=== PATIENT | female | born 1940 | race African-American/Black ===

== ENCOUNTER 2017-12-10 16:58 | Inpatient (IN) | payer MEDICARE ==
[~2017-12-10] VITALS: Ht 162.6 cm; Wt 120.2 kg
[2017-12-10] MEDS ORDERED: ACETAMINOPHEN 325 MG TABLET PO PRN (18:15)
[2017-12-10 19:22] VITALS: BP 162/79
--- NOTE | 2017-12-10 19:37 | RAD ---
CT HEAD AND MAXILLOFACIAL WO dated 12/10/2017 6:21 PM Indication: Sinus congestion, dental painHX brain tumore, sinus congestion, dental pain. Comparison: No comparison is available. Technique: Contiguous axial imaging the head was performed from skull base to vertex. No contrast administered. In addition, axial imaging of the maxillofacial bones obtained with thin cut coronal and sagittal reconstruction. One or more of the following individualized dose reduction techniques were utilized for this examination: 1. Automated exposure control 2. Adjustment of the mA and/or kV according to patient size 3. Use of iterative reconstruction technique Findings: Ventricles and sulci are within normal limits for age. No midline shift or mass effect. Brain parenchyma is of normal attenuation. No hemorrhage or extra axial collection. There is minimal patchy low density in the deep/subcortical periventricular white matter. Posterior fossa and brainstem unremarkable. No acute calvarial abnormality. There is a small calcified nodule along the right frontal convexity that measures 7 mm, likely calcified meningioma. Images of the maxillary facial bones show mild mucosal thickening of the bilateral maxillary, ethmoid and right sphenoid sinuses. Ostiomeatal units and infundibula are patent. No air-fluid level. There is mild hypertrophy of the bilateral nasal turbinates. Nasal septum is midline. There is mild radiolucency surrounding a premolar tooth at the right mandible no significant inflammatory changes in the overlying subcutaneous fat. No fluid collection is identified. Visualized soft tissue structures are unremarkable. Mastoid air cells are clear. IMPRESSION HEAD: 1. No evidence of acute intracranial abnormality. 2. Calcified nodule along the right frontal convexity, likely a small meningioma. No significant mass effect or edema. 3. Mild chronic small vessel ischemic changes in the deep/subcortical periventricular white matter. Impression maxillofacial: 1. Mild pansinus mucosal thickening. The ostiomeatal units and infundibula are patent. 2. Mild radiolucency along a premolar tooth at the right mandible, possibly representing a dental caries. No definite adjacent abscess. Electronically signed by: Theodore Schulz MD (12/10/2017 7:34 PM) [facility]
[2017-12-10 19:40] LABS: BASO % 1 % (0-3); EOS # 0.2 x10^3/uL (0.0-0.7); EOS % 3 % (0-3); HEMATOCRIT 31.6 % (36.0-47.0); HEMOGLOBIN 10.5 g/dL (12.0-15.5); LYMPH # 1.6 x10^3/uL (1.0-4.8); LYMPH % 28 % (24-48); MEAN CORPUSCULAR HEMOGLOBIN 31 pg (25-35); MEAN CORPUSCULAR HGB CONC 33 g/dL (31-37); MEAN CORPUSCULAR VOLUME 92 fL (79-100); MONO # 0.6 x10^3/uL (0.0-1.1); MONO % 11 % (0-9); NEUT # 3.3 x10^3uL (1.8-7.7); NEUT % 58 % (31-73); PLATELET COUNT 235 x10^3/uL (140-400); RED BLOOD COUNT 3.43 x10^6/uL (3.50-5.40); RED CELL DISTRIBUTION WIDTH 14.9 % (11.5-14.5); WHITE BLOOD COUNT 5.7 x10^3/uL (4.0-11.0)
[2017-12-10 19:52] LABS: ALBUMIN 3.6 g/dL (3.4-5.0); ALBUMIN/GLOBULIN RATIO 0.8 (1.0-1.7); ALK PHOS 101 U/L (46-116); ALT (SGPT) 21 U/L (14-59); ANION GAP 8 (6-14); AST (SGOT) 21 U/L (15-37); BLOOD UREA NITROGEN 24 mg/dL (7-20); BUN/CREATININE RATIO 17 (6-20); CALCIUM 9.4 mg/dL (8.5-10.1); CARBON DIOXIDE 32 mmol/L (21-32); CHLORIDE 104 mmol/L (98-107); CREATININE 1.4 mg/dL (0.6-1.0); GLUCOSE 86 mg/dL (70-99); POTASSIUM 3.9 mmol/L (3.5-5.1); SODIUM 144 mmol/L (136-145); TOTAL BILIRUBIN 0.4 mg/dL (0.2-1.0)
[2017-12-10] MEDS: CLINDAMYCIN HCL 150 MG CAPSULE PO SCH (21:34)
[2017-12-10] MEDS: LACTOBACILLUS RHAMNOSUS GG 1 CAPSULE. PO SCH (21:34)
[2017-12-10 21:35] LABS: BILIRUBIN,URINE NEG (NEG); CLARITY,URINE CLEAR; COLOR,URINE YELLOW; GLUCOSE,URINE NEG (NEG); NITRITE,URINE NEG (NEG); UROBILINOGEN,URINE 0.2 mg/dL (0.2 mg/dL)
[2017-12-10 21:36] LABS: BACTERIA,URINE FEW /HPF (0-FEW); HYALINE CASTS, URINE FEW /HPF; SQUAMOUS EPITHELIAL CELL,UR MANY /LPF
[2017-12-10] MEDS ORDERED: VALS160T3 PO (21:45)
[2017-12-10] MEDS ORDERED: DEXL60CA2 PO (21:46)
--- NOTE | 2017-12-10 21:52 | EKG ---
[address] [address] Test Date: 2017-12-10 Test Time: 20:46:29 Pat Name: VALDO BENÍTEZ Department: Room: [place] [address] Gender: F Set Off Press Operator: : 1940 Requested By: DARLYN BAINS Order Number: [id number] Reading MD: Measurements Intervals [place] Rate: 72 P: 24 OR: 200 QRS: -6 QRSD: 84 T: 59 QT: 410 QTc: 456 Interpretive Statements SINUS RHYTHM LEFTWARD AXIS NO SPECIFIC ECG ABNORMALITIES RI6.01 No previous ECG available for comparison
[2017-12-10] MEDS ORDERED: CLINDAMYCIN 75 MG/5 ML ORAL SOLUTION. PO SCH (22:00)
[2017-12-10] MEDS ORDERED: SENN-87 PO (22:12)
[2017-12-10] MEDS ORDERED: POTA10TA10 PO (22:12)
[2017-12-10] MEDS ORDERED: OMEP40CA5 PO (22:12)
[2017-12-10] MEDS ORDERED: LUBI24CA7 PO (22:12)
[2017-12-10] MEDS ORDERED: FURO80TA3 PO (22:12)
[2017-12-10] MEDS ORDERED: LEVO200T5 PO (22:12)
[2017-12-10] MEDS ORDERED: HYDR-2867 PO (22:12)
[2017-12-10] MEDS ORDERED: LEVE500T11 PO (22:12)
[2017-12-10 23:35] VITALS: BP 177/82
--- NOTE | 2017-12-10 23:39 | RAD ---
CHEST PA LATERAL History: Chest pain and discomfort Comparison: None. Findings: There is left chest dual-chamber pacer. Tortuous thoracic aorta. Mild cardiomegaly. Pulmonary vasculature is normal. The lungs are clear. No pleural effusion or pneumothorax is seen. There is no acute bone abnormality. IMPRESSION: No acute cardiopulmonary process. Electronically signed by: Piter Flores MD (12/10/2017 11:35 PM) [facility]
[2017-12-11] MEDS: CLINDAMYCIN HCL 150 MG CAPSULE PO SCH ×5 (05:38→23:37)
[2017-12-11 06:06] VITALS: BP 163/80
[2017-12-11 06:33] LABS: CALCIUM 9.2 mg/dL (8.5-10.1); CREATININE 1.2 mg/dL (0.6-1.0); GFR 52.6; POTASSIUM 3.4 mmol/L (3.5-5.1)
[2017-12-11 06:43] LABS: BASO % 0 % (0-3); EOS # 0.1 x10^3/uL (0.0-0.7); EOS % 3 % (0-3); HEMOGLOBIN 10.1 g/dL (12.0-15.5); LYMPH # 1.6 x10^3/uL (1.0-4.8); LYMPH % 31 % (24-48); MEAN CORPUSCULAR HEMOGLOBIN 31 pg (25-35); MEAN CORPUSCULAR HGB CONC 34 g/dL (31-37); MEAN CORPUSCULAR VOLUME 93 fL (79-100); MONO # 0.5 x10^3/uL (0.0-1.1); MONO % 10 % (0-9); NEUT % 57 % (31-73); PLATELET COUNT 220 x10^3/uL (140-400); RED BLOOD COUNT 3.24 x10^6/uL (3.50-5.40); RED CELL DISTRIBUTION WIDTH 14.7 % (11.5-14.5); WHITE BLOOD COUNT 5.4 x10^3/uL (4.0-11.0)
[2017-12-11] MEDS: LACTOBACILLUS RHAMNOSUS GG 1 CAPSULE. PO SCH ×2 (08:16→20:49)
[2017-12-11 10:34] VITALS: BP 184/95
[2017-12-11] MEDS ORDERED: ELECTROLYTE (NON-ICU) PROTOCOL MC PRN (10:45)
[2017-12-11] MEDS: levETIRAcetam 500 MG TABLET PO SCH ×2 (10:59→20:50)
[2017-12-11] MEDS: PANTOPRAZOLE 40 MG TABLET. PO SCH (10:59)
[2017-12-11] MEDS: LEVOTHYROXINE 100 MCG TABLET PO SCH (10:59)
[2017-12-11] MEDS: LOSARTAN 50 MG TABLET. PO SCH (11:00)
[2017-12-11] MEDS: FUROSEMIDE 80 MG TABLET PO SCH (11:00)
[2017-12-11] MEDS: POTASSIUM CHLORIDE 20 MEQ TABLET.ER. PO SCH (11:00)
--- NOTE | 2017-12-11 11:15 | PDOC2 ---
UNIQUEDAILY Carol DAILY 12/11/17 1115: CONSULT Date of Admission DATE: 12/11/17 TIME: 11:00 Reason for Consult: chest pain History of Present Illness Ms Cote is a 77 year old female who recently traveled from [place] to visit her daughter. She presented to her PCP with complaints of chest pain. She reports right sided chest pain, radiating to her right arm, which is increased with deep inspiration and movement of her right upper extremity. She reports shortness of breath for some time. She is very vague about her symptoms but sounds like she has been more short of breath with exertion over the last month or so. She denies orthopnea or PND and sleeps on 2 pillows for comfort. Her daughter reports that she has more swelling in her legs than normal. She denies palpitations or lightheadedness. She does mention that she saw the neurologist because she passed out but is unable to give details. She is a poor historian but her daughter assists with her medical history. Past Medical History brain tumor, prior history of DVT/PE Cardiovascular: CAD, CHF, HTN, IA, syncope, hyperipidemia, Other ( cardiomyopathy with systolic dysfunction, SSS s/p PM) Pulmonary: Asthma, Other (SOPHY) CENTRAL NERVOUS SYSTEM: CVA, Seizure GI: Constipation, GERD Heme/Onc: Anemia NOS Musculoskeletal: Osteoarthritis Renal/: Chronic renal insuff Endocrine: Diabetes, Hypothyroidism Past Surgical History bowel resection with mesh hernia repair, cholecystectomy Family History non contributory Social History non smoker, no significant ETOH, no illicit drugs Current Medications Current Medications Acetaminophen (Tylenol) 650 mg PRN Q6HRS PRN PO Headaches, Temp > 101.5F; Start 12/10/17 at 18:15 Clindamycin Palmitate HCl (Cleocin Pediatric) 300 mg Q6H PO ; Start 12/10/17 at 22:00; Stop 12/10/17 at 22:00; Status DC Clindamycin HCl (Cleocin) 300 mg Q6HRS PO Last administered on 12/11/17at 05:38 ; Start 12/10/17 at 19:00 Lactobacillus Rhamnosus (Culturelle) 1 cap BID PO Last administered on at 08:16; Start 12/10/17 at 21:00 Non-Formulary Medication (Dexlansoprazole (Dexilant)) 1 cap DAILY PO ; Start at 09:00; Stop 12/12/17 at 09:00; Status DC Furosemide (Lasix) 80 mg DAILY PO ; Start 12/11/17 at 11:00 Hydralazine HCl (Apresoline) 10 mg QID PO ; Start 12/11/17 at 13:00 Levetiracetam (Keppra) 500 mg BID PO ; Start 12/11/17 at 11:00 Levothyroxine Sodium (Synthroid) 200 mcg DAILY07 PO ; Start 12/11/17 at 11:00 Pantoprazole Sodium (Protonix) 40 mg DAILYAC PO ; Start 12/11/17 at 11:00 Potassium Chloride (Klor-Con) 20 meq DAILYWBKFT PO ; Start 12/11/17 at 11:00 Sennosides (Senna) 8.6 mg QHS PO ; Start 12/11/17 at 21:00 Losartan Potassium (Cozaar) 100 mg DAILY PO ; Start 12/11/17 at 11:00 Info (Non-Icu Electrolyte Protocol) 1 ea CONT PRN PRN MC PER PROTOCOL; Start at 10:45 Heparin Sodium (Porcine) (Heparin Sq) 5,000 unit Q8HRS SQ ; Start 12/11/17 at 14 :00 Active Scripts Active Reported Amitiza (Lubiprostone) 24 Mcg Capsule 1 Cap PO BID Potassium Chloride 10 Meq Tablet.er 20 Meq PO DAILY Furosemide 80 Mg Tablet 1 Tab PO DAILY Senna Lax (Sennosides) 8.6 Mg Tablet 8.6 Mg PO HS Levetiracetam 500 Mg Tab.er.24h 500 Mg PO BID Hydralazine Hcl 10 Mg Tablet 10 Mg PO QID Omeprazole 40 Mg Capsule.dr 1 Cap PO DAILY Levothyroxine Sodium 200 Mcg Tablet 1 Tab PO DAILY Dexilant (Dexlansoprazole) 60 Mg Cap.mp 1 Cap PO DAILY Diovan (Valsartan) 160 Mg Tablet 1 Tab PO DAILY Allergies: Coded Allergies: Penicillins (Verified Allergy, Intermediate, Anaphylaxis, 12/10/17) soy (Verified Allergy, Mild, Unknown, 12/10/17) Review of System as per HPI General: Alert, Oriented X3, Cooperative, No acute distress HEENT: Atraumatic, EOMI Lungs: Clear to auscultation Heart: Regular rate, Normal S1, Normal S2 Abdomen: Normal bowel sounds, Soft Extremities: No cyanosis, Other (+chronic edema) Neuro: Normal speech, Strength at 5/5 X4 ext Psych/Mental Status: Mental status NL, Mood NL VITALS Vital Signs Date Time Temp Pulse Resp B/P (MAP) Pulse Ox O2 Delivery O2 Flow Rate FiO2 12/11/17 10:34 66 184/95 (124) 12/11/17 07:45 Room Air 12/11/17 06:06 98.2 12 96 Labs Laboratory Tests Test 12/10/17 19:05 12/10/17 19:57 12/10/17 22:35 12/11/17 05:58 White Blood Count 5.7 x10^3/uL (4.0-11.0) 5.4 x10^3/uL (4.0-11.0) Red Blood Count 3.43 x10^6/uL (3.50-5.40) 3.24 x10^6/uL (3.50-5.40) Hemoglobin 10.5 g/dL (12.0-15.5) 10.1 g/dL (12.0-15.5) Hematocrit 31.6 % (36.0-47.0) 30.0 % (36.0-47.0) Mean Corpuscular Volume 92 fL (79-100) 93 fL (79-100) Mean Corpuscular Hemoglobin 31 pg (25-35) 31 pg (25-35) Mean Corpuscular Hemoglobin Concent 33 g/dL (31-37) 34 g/dL (31-37) Red Cell Distribution Width 14.9 % (11.5-14.5) 14.7 % (11.5-14.5) Platelet Count 235 x10^3/uL (140-400) 220 x10^3/uL (140-400) Neutrophils (%) (Auto) 58 % (31-73) 57 % (31-73) Lymphocytes (%) (Auto) 28 % (24-48) 31 % (24-48) Monocytes (%) (Auto) 11 % (0-9) 10 % (0-9) Eosinophils (%) (Auto) 3 % (0-3) 3 % (0-3) Basophils (%) (Auto) 1 % (0-3) 0 % (0-3) Neutrophils # (Auto) 3.3 x10^3uL (1.8-7.7) 3.0 x10^3uL (1.8-7.7) Lymphocytes # (Auto) 1.6 x10^3/uL (1.0-4.8) 1.6 x10^3/uL (1.0-4.8) Monocytes # (Auto) 0.6 x10^3/uL (0.0-1.1) 0.5 x10^3/uL (0.0-1.1) Eosinophils # (Auto) 0.2 x10^3/uL (0.0-0.7) 0.1 x10^3/uL (0.0-0.7) Basophils # (Auto) 0.0 x10^3/uL (0.0-0.2) 0.0 x10^3/uL (0.0-0.2) D-Dimer (Emperatriz) 2.72 mg/L (0.00-0.50) Sodium Level 144 mmol/L (136-145) 143 mmol/L (136-145) Potassium Level 3.9 mmol/L (3.5-5.1) 3.4 mmol/L (3.5-5.1) Chloride Level 104 mmol/L (98-107) 105 mmol/L (98-107) Carbon Dioxide Level 32 mmol/L (21-32) 31 mmol/L (21-32) Anion Gap 8 (6-14) 7 (6-14) Blood Urea Nitrogen 24 mg/dL (7-20) 20 mg/dL (7-20) Creatinine 1.4 mg/dL (0.6-1.0) 1.2 mg/dL (0.6-1.0) Estimated GFR (Cockcroft-Gault) 44.0 52.6 BUN/Creatinine Ratio 17 (6-20) Glucose Level 86 mg/dL (70-99) 93 mg/dL (70-99) Calcium Level 9.4 mg/dL (8.5-10.1) 9.2 mg/dL (8.5-10.1) Magnesium Level 2.0 mg/dL (1.8-2.4) Total Bilirubin 0.4 mg/dL (0.2-1.0) Aspartate Amino Transf (AST/SGOT) 21 U/L (15-37) Alanine Aminotransferase (ALT/SGPT) 21 U/L (14-59) Alkaline Phosphatase 101 U/L (46-116) Creatine Kinase 73 U/L (26-192) 70 U/L (26-192) 62 U/L (26-192) Creatine Kinase MB (Mass) < 0.5 ng/mL (0.0-3.6) < 0.5 ng/mL (0.0-3.6) Creatine Kinase MB Relative Index 0.7 % (0-4) 0.7 % (0-4) Troponin I Quantitative < 0.017 ng/mL (0-0.055) < 0.017 ng/mL (0-0.055) < 0.017 ng/mL (0-0.055) BY-Jrs-T-Type Natriuretic Peptide 321 pg/mL (0-449) Total Protein 8.0 g/dL (6.4-8.2) Albumin 3.6 g/dL (3.4-5.0) Albumin/Globulin Ratio 0.8 (1.0-1.7) Urine Collection Type Unknown Urine Color Yellow Urine Clarity Clear Urine pH 5.0 Urine Specific [place] 1.010 Urine Protein Neg (NEG-TRACE) Urine Glucose (UA) Neg mg/dL (NEG) Urine Ketones (Stick) Neg mg/dL (NEG) Urine Blood Trace (NEG) Urine Nitrite Neg (NEG) Urine Bilirubin Neg (NEG) Urine Urobilinogen Dipstick 0.2 mg/dL (0.2 mg/dL) Urine Leukocyte Esterase Small (NEG) Urine RBC 3-5 /HPF (0-2) Urine WBC 11-20 /HPF (0-4) Urine Squamous Epithelial Cells Many /LPF Urine Bacteria Few /HPF (0-FEW) Urine Hyaline Casts Few /HPF Urine Mucus Slight /LPF Images EKG - a paced, V sensed, no acute abn CXR - IMPRESSION: No acute cardiopulmonary process. Assessment/Plan 1. Chest pain, atypical - CE negative. D Dimer elevated. 2. CAD - CE negative 3. chronic systolic heart failure - check echo, no HF by CXR. monitor I/Os and daily weights. 4. syncope vs seizure - check orthostatics, check PM for arrhythmias. Neuro consulted 5. SSS s/p PPM - obtain records and check device 6. hypertension 7. hyperlipidemia 8. diabetes Check echo, request records and interrogate PM, CT for PE and venous duplex sonos. FAVIO HATFIELD MD 12/12/17 0729: CONSULT Assessment/Plan Late entry for 12/11/2017. Pt. seen and examined. Agree with above DRAFTER APPRENTICE note. 77 y.o with significant uncontrolled HTN Suspect this is diastolic HF. Will await OSH records and device interrogation. Supportive care. Thanks. DAILY CALHOUN APRN December 11, 2017 11:15 FAVIO HATFIELD MD December 12, 2017 07:29
[2017-12-11] MEDS: hydrALAZINE 10 MG TABLET PO SCH ×3 (13:04→20:50)
[2017-12-11] MEDS: HEPARIN PF for SUB-Q USE 5,000 UNIT/0.5 ML VIAL. SQ SCH ×2 (14:15→22:12)
--- NOTE | 2017-12-11 15:41 | RAD ---
VQ Scan: Clinical History: Elevated d-dimer, dyspnea. Comparison: None available Technique: 10.4 mCi of xenon-133 was administered as an aerosol and spot views were obtained on a gamma camera for a Nuclear Medicine ventilation examination. 5.5 mCi of Tc 99m MAA was administered intravenously and spot views were obtained on the gamma camera for a Nuclear Medicine perfusion examination. Static images were reviewed as a V/Q scan in order to exclude pulmonary embolism. Findings: There is mild retention of the radiotracer on the ventilation images on the washout phase probably airway disease. No evidence of segmental mismatch defects identified in the bilateral lungs. Impression: Low probability for pulmonary embolism. Electronically signed by: Sloan Esposito MD (12/11/2017 3:38 PM) [id number]
[2017-12-11 15:48] VITALS: BP 176/81
--- NOTE | 2017-12-11 15:54 | CARD ---
MR#: [id number] Date of Study: 12/11/2017 Ordering Physician: DARLYN BAINS, Referring Physician: DARLYN BAINS, Tech: NICOLE Brown APPROVED REPORT EXAM: Two-dimensional and M-mode echocardiogram with Doppler and color Doppler. Other Information Quality : AverageHR: 65bpm INDICATION Chest Pain 2D DIMENSIONS RVDd3.2 (2.9-3.5cm)Left Atrium(2D)3.0 (1.6-4.0cm) IVSd1.5 (0.7-1.1cm)Aortic Root(2D)2.8 (2.0-3.7cm) LVDd5.4 (3.9-5.9cm)LVOT Diameter2.2 (1.8-2.4cm) PWd1.5 (0.7-1.1cm)LVDs4.0 (2.5-4.0cm) FS (%) 25.6 %SV69.6 ml Aortic Valve AoV Peak Sherman.206.7cm/sAoV VTI48.8cm AO Peak GR.17.1mmHgLVOT Peak Sherman.100.6cm/s LVOT VTI 24.47cmAO Mean GR.9mmHg ROSANA (VMAX)1.11of6VKP (VTI)1.87cm2 Mitral Valve MV E Tlwzsaay640.8cm/sMV DECEL EJYW298yz MV A Vuqvvfgn676.6cm/sE/A Ratio0.9 Pulmonary Valve PV Peak Uidlvnue846.4cm/sPV Peak Grad.6mmHg Tricuspid Valve TR P. Yqctymsy119sd/sRAP CGQSXKRK6pjAv TR Peak Gr.23ulKhUUVY47xiWd Pulmonary Vein S1 Luazcrtx40.4cm/sD2 Yvxahqns76.6cm/s LEFT VENTRICLE The left ventricle is normal size. There is moderate concentric left ventricular hypertrophy. Left ve ntricle systolic function is normal. The Ejection Fraction is 55%. There is normal LV segmental wall motion. Transmitral Doppler flow pattern is Grade I-abnormal relaxation pattern. RIGHT VENTRICLE The right ventricle is normal size. There is normal right ventricular wall thickness. The right ventr icular systolic function is normal. ATRIA The left atrium size is normal. The right atrium size is normal. The interatrial septum is intact wit h no evidence for an atrial septal defect or patent foramen ovale as noted on 2-D or Doppler imaging. AORTIC VALVE The aortic valve is mildly sclerotic. Doppler and Color Flow revealed no significant aortic regurgita tion. There is no significant aortic valvular stenosis. There is no aortic valvular vegetation. MITRAL VALVE The mitral valve is mildly thickened but opens well. There is no evidence of mitral valve prolapse. T here is no mitral valve stenosis. Doppler and Color-flow revealed trace mitral regurgitation. TRICUSPID VALVE The tricuspid valve is normal in structure. Doppler and Color Flow revealed mild tricuspid regurgitat ion. There is moderate pulmonary hypertension. The PA pressure was estimated at 48 mmHg. There is no tricuspid valve prolapse or vegetation. There is no tricuspid valve stenosis. PULMONIC VALVE The pulmonic valve is not well visualized. Doppler and Color Flow revealed mild pulmonic valvular reg urgitation. There is no pulmonic valvular stenosis. GREAT VESSELS The aortic root is normal in size. The IVC is dilated and collapses >50% with inspiration. PERICARDIAL EFFUSION There is no evidence of significant pericardial effusion. Critical Notification Critical Value: No <Conclusion> Left ventricle systolic function is normal. The Ejection Fraction is 55%. There is normal LV segmental wall motion. Trace mitral regurgitation. Mild tricuspid regurgitation. The PA pressure was estimated at 48 mmHg. There is no evidence of significant pericardial effusion. Signed by : Kit Piedra, Electronically Approved : 12/11/2017 15:53:20
[2017-12-11 19:52] VITALS: BP 147/67
[2017-12-11] MEDS ORDERED: SENNOSIDES 8.6 MG TABLET PO SCH (21:00)
--- NOTE | 2017-12-11 22:38 | PN ---
DATE: 12/11/2017 SUBJECTIVE: The patient continues to have mild right-sided chest pain radiating to the right shoulder. She denies any new medical or neurological complaints. OBJECTIVE: GENERAL: Obese -[place] female, not in acute distress. VITAL SIGNS: Blood pressure 163/80, respiratory rate 12, pulse is 66 and regular, temperature is 98.2, oxygen saturation 96% on room air. HEENT: Normocephalic, atraumatic, otherwise unremarkable. NECK: Supple. Negative for carotid bruit, lymphadenopathy, or thyromegaly. LUNGS: Clear to A and P. CARDIOVASCULAR: Regular rate and rhythm, normal S1, S2. There is no S3, S4, or murmur. ABDOMEN: Soft. Bowel sounds positive. EXTREMITIES: With diffuse trace edema. NEUROLOGIC: Normal mental status and intact cranial nerves. There is no focal motor deficit. The strength was 4/5 throughout. Sensory examination revealed normal pinprick, light touch, vibratory and position senses. Deep tendon reflexes were symmetric and hypoactive with absent Achilles responses. Gait: The patient uses a walker without difficulties. LABORATORY DATA: CBC revealed white blood cells of 5400, hemoglobin 10.1, hematocrit 30, platelet count 220,000. Chemistry revealed sodium of 143, potassium 3.4, chloride 105, CO2 31, BUN 20, creatinine 1.2, glucose 93, and calcium 9.2. Normal troponin level and cardiac enzymes. IMPRESSION: 1. Right-sided chest pain with history of gastroesophageal reflux disease, probably not cardiac, chest pain with normal cardiac enzymes. 2. History of seizure disorder, the last seizure was a year ago. 3. Multiple medical problems include hypothyroidism, hypertension, hyperlipidemia, status post permanent pacemaker placement, generalized arthritis, and obesity. RECOMMENDATIONS: Continue with current management with potassium supplements. We will arrange for EEG to be done next Saturday on an outpatient basis. M Debbie DAVEY MD DR: YOLANDA/hermelindo JOB#: [id number] / [id number]
--- NOTE | 2017-12-11 22:53 | CONS ---
DATE OF CONSULTATION: 12/10/2017 REFERRING PHYSICIAN: Dr. Marin. REASON FOR CONSULTATION: Syncope versus seizure. HISTORY OF PRESENT ILLNESS: This is a 77-year-old right-handed -Spanish female who was admitted because of developing chest pain and possibly has a syncope versus seizure. According to the patient, she started having right-sided chest pain radiating to the shoulder approximately 4 days ago. The pain has been intermittent, but she does not have any diaphoresis, shortness of breath or palpitations. She also complains of moderate lower abdominal pain and she stated she will have this pain when she had urinary tract infections; however, she denies any urinary problems. The patient stated after she had chest pain, she went to bathroom, but when she came back she was tired, she laid down on the couch for approximately 4 hours. When she woke up, she was confused, incoherent, she did not know where she was. Today, her chest pain is mild. She denies headaches, visual disturbances, nausea, vomiting, numbness, paresthesia or weakness. She also complains of generalized arthritic pain and she related that to arthritis. PAST MEDICAL HISTORY: Significant for morbid obesity, seizure disorders, brain tumor, which is benign appearing tremor -- possible meningioma, bradycardia required permanent pacemaker placement, hyperlipidemia, asthma, sleep apnea, GERD, arthritis, diabetes mellitus, anxiety. PAST SURGICAL HISTORY: Significant for pacemaker placement, abdominal surgery required mesh placement. SOCIAL HISTORY: The patient is a resident of [facility]. She is a visitor. She denies smoking, alcohol drinking, or illicit drug use. FAMILY HISTORY: Noncontributory. CURRENT HOME MEDICATIONS: Dexilant 60 mg daily, Lasix 80 mg daily, hydralazine 10 mg tablets q.i.d., levetiracetam (Keppra) 500 mg twice daily, levothyroxine 200 mcg daily, omeprazole 40 mg daily, potassium 20 mEq daily, Senna-Lax p.r.n. and Diovan 160 mg daily. ALLERGIES: PENICILLIN AND SOY. REVIEW OF SYSTEMS: A 10-point review of system was performed and consistent with morbid obesity. Otherwise, as mentioned above in history of present illness. PHYSICAL EXAMINATION: GENERAL: Obese white female, not in acute distress. She weighs 265 pounds. VITAL SIGNS: Blood pressure 162/79, respiratory rate 18, pulse is 76 and regular, temperature 97.9, oxygen saturation is 93% on room air. HEENT: Normocephalic, atraumatic, otherwise unremarkable. NECK: Supple. Negative for carotid bruit, lymphadenopathy or thyromegaly. LUNGS: Clear to A and P. CARDIOVASCULAR: Regular rate and rhythm. Normal S1, S2. ABDOMEN: Soft. Bowel sounds positive. EXTREMITIES: Positive for generalized trace edema. NEUROLOGICAL: 1. Mental status: The patient is alert and oriented x 3. The speech is fluent. There is no language dysfunction. Memory, judgment, abstract and thinking are normal. The patient denies hallucination or delusion. 2. Cranial nerves: Visual hodge are full. The pupils are reactive to light and accommodation. The extraocular movements are intact. There is no nystagmus. There is no facial motor or sensory deficit. Hearing is intact bilaterally. The palate is elevated symmetrically. Sternocleidomastoid muscles are powerful bilaterally. The patient shrugs her shoulders symmetrically, protrudes her tongue in the midline without fasciculation or atrophy. 3. Motor examination: No focal muscle bulk was seen. The tone is normal. The strength is 4/5 throughout. 4. Sensory examination: Revealed normal pinprick, light touch, vibratory and position senses. 5. Deep tendon reflexes were symmetric and hypoactive with absent Achilles responses. 6. Gait: The patient uses a walker for ambulation. DIAGNOSTIC DATA: Initial nonenhanced head CT scan revealed no evidence of acute intracranial process, but showed a calcified small nodule along the right frontal convexity probably consistent with a small meningioma, otherwise mild chronic small vessel ischemic changes were also noted. Brenner sinus mucosal thickening were also noted. Chest x-ray: No evidence of acute cardiopulmonary process. LABORATORY DATA: CBC revealed white blood cells of 5.7 thousand, hemoglobin 10.5, hematocrit 31.6, platelet count 235,000. Chemistry revealed sodium of 143, potassium 3.4, chloride 105, CO2 of 31, BUN 20, creatinine 1.2, glucose is 93, calcium 9.2. Liver enzymes are normal. Cardiac enzymes are normal with normal troponin level. Urinalysis, white blood cells of 11-20 with small leukocyte esterase and few bacteria. IMPRESSION: 1. Right-sided chest pain with normal cardiac enzymes, status post pacemaker placement. EKG is not available at this time, but shows a normal sinus rhythm without acute ST changes. The chest pain probably is not cardiac. 2. History of seizure disorder with abnormal head CT scan consistent with small meningioma. The patient stated her last seizure was a year ago. 3. Possible urinary tract infections. 4. Obesity and a history of obstructive sleep apnea. 5. Gastroesophageal reflux disease, generalized arthritis, mild hypokalemia, anemia probably of chronic type, hypothyroidism, history of anxiety and depression. RECOMMENDATIONS: 1. The patient will be scheduled to have an EEG on an outpatient basis. 2. Potassium supplements. 3. PT evaluation. 4. Continue with current care initiated by Dr. Marin. M Debbie DAVEY MD DR: YOLANDA/hermelindo JOB#: [id number] / [id number]
[2017-12-11 23:49] VITALS: BP 146/74
--- NOTE | 2017-12-11 23:57 | PN ---
DATE: 12/11/2017 SUBJECTIVE: A 77-year-old female in with multiple medical issues. The patient otherwise is resting fairly comfortably, making fairly good progress, being seen by Neurology as well as Cardiology. OBJECTIVE: GENERAL: The patient this morning says she is feeling better. The patient is alert and oriented. VITAL SIGNS: Blood pressure is up to 180/90, respiratory rate 12, pulse 66, afebrile. HEENT: Otherwise, eyes PERRLA, EOMI. Mouth and throat are negative. NECK: Supple. LUNGS: Clear to auscultation. CARDIOVASCULAR: Regular sinus rhythm, S1, S2, without murmur, thrill, or extra heart sound. The patient was complaining a little bit of chest pain. Cardiology is on top of that. We will get echo and further evaluation on her as indicated. Otherwise impression chest pain, syncope, possible seizure activity ____ hypokalemia, elevated D-dimer, anemia of chronic disease. DARLYN BAINS MD DR: ALISTAIR/hermelindo JOB#: [id number] / [id number]
[2017-12-12 06:15] VITALS: BP 160/80
[2017-12-12] MEDS: CLINDAMYCIN HCL 150 MG CAPSULE PO SCH ×2 (06:17→11:53)
[2017-12-12] MEDS: HEPARIN PF for SUB-Q USE 5,000 UNIT/0.5 ML VIAL. SQ SCH (06:22)
[2017-12-12] MEDS: FUROSEMIDE 80 MG TABLET PO SCH (08:28)
[2017-12-12] MEDS: LACTOBACILLUS RHAMNOSUS GG 1 CAPSULE. PO SCH (08:28)
[2017-12-12] MEDS: LEVOTHYROXINE 100 MCG TABLET PO SCH (08:28)
[2017-12-12] MEDS: PANTOPRAZOLE 40 MG TABLET. PO SCH (08:29)
[2017-12-12] MEDS: POTASSIUM CHLORIDE 20 MEQ TABLET.ER. PO SCH (08:29)
[2017-12-12] MEDS: LOSARTAN 50 MG TABLET. PO SCH (08:29)
[2017-12-12] MEDS: hydrALAZINE 10 MG TABLET PO SCH (08:30)
[2017-12-12] MEDS: levETIRAcetam 500 MG TABLET PO SCH (08:30)
[2017-12-12] MEDS ORDERED: NON FORMULARY ITEM (Dexlansoprazole (Dexilant) 1 CAP) PO SCH (09:00)
--- NOTE | 2017-12-12 09:11 | PDOC ---
PROGRESS NOTES Assessment 1. Chest pain, atypical - CE negative. D Dimer elevated. VQ negative. 2. CAD - CE negative. No angina 3. chronic diastolic heart failure - normal LVEF by echo. 1x IV lasix today. replace potassium. 4. syncope vs seizure - neg orthostatics, awaiting records for pacemaker staff readiness officer. Scheduled for check in office on if unable to obtain records. Neuro following. EEG outpatient on Sat. 5. SSS s/p PPM 6. hypertension - increase hydralazine. 7. hyperlipidemia 8. diabetes - per PCP IV lasix, replace potassium, increase hydralazine and repeat labs this am. re- evaluate and possible discharge this afternoon. Subjective no new complaints. no significant change in edema. Objective Vital Signs Date Time Temp Pulse Resp B/P (MAP) Pulse Ox O2 Delivery O2 Flow Rate FiO2 12/12/17 08:30 71 160/80 12/12/17 08:00 Room Air 12/12/17 06:15 98.3 16 93 Intake and Output 12/12/17 07:00 Intake Total 280 ml Balance 280 ml Intake Oral 280 ml # Voids 4 Abdomen: Normal bowel sounds, Soft, No tenderness Heart: Regular rate, Normal S1, Normal S2 Extremities: No cyanosis, Other (+edema) General: Alert, Oriented X3, Cooperative, No acute distress Lungs: Other (decreased bases) Neuro: Normal speech, Strength at 5/5 X4 ext Psych/Mental Status: Mental status NL, Mood NL Review of Relevant I have reviewed the following items rudy (where applicable) has been applied. Labs Laboratory Tests Test 12/10/17 19:05 12/10/17 19:10 12/10/17 19:57 12/10/17 22:35 White Blood Count 5.7 x10^3/uL (4.0-11.0) Red Blood Count 3.43 x10^6/uL (3.50-5.40) Hemoglobin 10.5 g/dL (12.0-15.5) Hematocrit 31.6 % (36.0-47.0) Mean Corpuscular Volume 92 fL (79-100) Mean Corpuscular Hemoglobin 31 pg (25-35) Mean Corpuscular Hemoglobin Concent 33 g/dL (31-37) Red Cell Distribution Width 14.9 % (11.5-14.5) Platelet Count 235 x10^3/uL (140-400) Neutrophils (%) (Auto) 58 % (31-73) Lymphocytes (%) (Auto) 28 % (24-48) Monocytes (%) (Auto) 11 % (0-9) Eosinophils (%) (Auto) 3 % (0-3) Basophils (%) (Auto) 1 % (0-3) Neutrophils # (Auto) 3.3 x10^3uL (1.8-7.7) Lymphocytes # (Auto) 1.6 x10^3/uL (1.0-4.8) Monocytes # (Auto) 0.6 x10^3/uL (0.0-1.1) Eosinophils # (Auto) 0.2 x10^3/uL (0.0-0.7) Basophils # (Auto) 0.0 x10^3/uL (0.0-0.2) D-Dimer (Emperatriz) 2.72 mg/L (0.00-0.50) Sodium Level 144 mmol/L (136-145) Potassium Level 3.9 mmol/L (3.5-5.1) Chloride Level 104 mmol/L (98-107) Carbon Dioxide Level 32 mmol/L (21-32) Anion Gap 8 (6-14) Blood Urea Nitrogen 24 mg/dL (7-20) Creatinine 1.4 mg/dL (0.6-1.0) Estimated GFR (Cockcroft-Gault) 44.0 BUN/Creatinine Ratio 17 (6-20) Glucose Level 86 mg/dL (70-99) Calcium Level 9.4 mg/dL (8.5-10.1) Magnesium Level 2.0 mg/dL (1.8-2.4) Total Bilirubin 0.4 mg/dL (0.2-1.0) Aspartate Amino Transf (AST/SGOT) 21 U/L (15-37) Alanine Aminotransferase (ALT/SGPT) 21 U/L (14-59) Alkaline Phosphatase 101 U/L (46-116) Creatine Kinase 73 U/L (26-192) 70 U/L (26-192) Creatine Kinase MB (Mass) < 0.5 ng/mL (0.0-3.6) < 0.5 ng/mL (0.0-3.6) Creatine Kinase MB Relative Index 0.7 % (0-4) 0.7 % (0-4) Troponin I Quantitative < 0.017 ng/mL (0-0.055) < 0.017 ng/mL (0-0.055) RR-Pxn-T-Type Natriuretic Peptide 321 pg/mL (0-449) Total Protein 8.0 g/dL (6.4-8.2) Albumin 3.6 g/dL (3.4-5.0) Albumin/Globulin Ratio 0.8 (1.0-1.7) Nasal Screen MRSA (PCR) Negative (Negative) Urine Collection Type Unknown Urine Color Yellow Urine Clarity Clear Urine pH 5.0 Urine Specific [place] 1.010 Urine Protein Neg (NEG-TRACE) Urine Glucose (UA) Neg mg/dL (NEG) Urine Ketones (Stick) Neg mg/dL (NEG) Urine Blood Trace (NEG) Urine Nitrite Neg (NEG) Urine Bilirubin Neg (NEG) Urine Urobilinogen Dipstick 0.2 mg/dL (0.2 mg/dL) Urine Leukocyte Esterase Small (NEG) Urine RBC 3-5 /HPF (0-2) Urine WBC 11-20 /HPF (0-4) Urine Squamous Epithelial Cells Many /LPF Urine Bacteria Few /HPF (0-FEW) Urine Hyaline Casts Few /HPF Urine Mucus Slight /LPF Test 12/11/17 05:58 White Blood Count 5.4 x10^3/uL (4.0-11.0) Red Blood Count 3.24 x10^6/uL (3.50-5.40) Hemoglobin 10.1 g/dL (12.0-15.5) Hematocrit 30.0 % (36.0-47.0) Mean Corpuscular Volume 93 fL (79-100) Mean Corpuscular Hemoglobin 31 pg (25-35) Mean Corpuscular Hemoglobin Concent 34 g/dL (31-37) Red Cell Distribution Width 14.7 % (11.5-14.5) Platelet Count 220 x10^3/uL (140-400) Neutrophils (%) (Auto) 57 % (31-73) Lymphocytes (%) (Auto) 31 % (24-48) Monocytes (%) (Auto) 10 % (0-9) Eosinophils (%) (Auto) 3 % (0-3) Basophils (%) (Auto) 0 % (0-3) Neutrophils # (Auto) 3.0 x10^3uL (1.8-7.7) Lymphocytes # (Auto) 1.6 x10^3/uL (1.0-4.8) Monocytes # (Auto) 0.5 x10^3/uL (0.0-1.1) Eosinophils # (Auto) 0.1 x10^3/uL (0.0-0.7) Basophils # (Auto) 0.0 x10^3/uL (0.0-0.2) Sodium Level 143 mmol/L (136-145) Potassium Level 3.4 mmol/L (3.5-5.1) Chloride Level 105 mmol/L (98-107) Carbon Dioxide Level 31 mmol/L (21-32) Anion Gap 7 (6-14) Blood Urea Nitrogen 20 mg/dL (7-20) Creatinine 1.2 mg/dL (0.6-1.0) Estimated GFR (Cockcroft-Gault) 52.6 Glucose Level 93 mg/dL (70-99) Calcium Level 9.2 mg/dL (8.5-10.1) Creatine Kinase 62 U/L (26-192) Troponin I Quantitative < 0.017 ng/mL (0-0.055) Triglycerides Level 89 mg/dL (0-150) Cholesterol Level 182 mg/dL (0-200) LDL Cholesterol, Calculated 111 mg/dL (0-100) VLDL Cholesterol, Calculated 17 mg/dL (0-40) Non-HDL Cholesterol Calculated 128 mg/dL (0-129) HDL Cholesterol 54 mg/dL (40-60) Cholesterol/HDL Ratio 3.0 Microbiology 12/10/17 Blood Culture - Preliminary, Resulted NO GROWTH AFTER 1 DAY... Medications Current Medications Acetaminophen (Tylenol) 650 mg PRN Q6HRS PRN PO Headaches, Temp > 101.5F Last administered on 12/11/17at 23:41; Start 12/10/17 at 18:15 Clindamycin Palmitate HCl (Cleocin Pediatric) 300 mg Q6H PO ; Start 12/10/17 at 22:00; Stop 12/10/17 at 22:00; Status DC Clindamycin HCl (Cleocin) 300 mg Q6HRS PO Last administered on 12/12/17at 06:17 ; Start 12/10/17 at 19:00 Lactobacillus Rhamnosus (Culturelle) 1 cap BID PO Last administered on 08:28; Start 12/10/17 at 21:00 Non-Formulary Medication (Dexlansoprazole (Dexilant)) 1 cap DAILY PO ; Start at 09:00; Stop 12/12/17 at 09:00; Status DC Furosemide (Lasix) 80 mg DAILY PO Last administered on 12/12/17 08:28; Start 12/11/17 at 11:00 Hydralazine HCl (Apresoline) 10 mg QID PO Last administered on 12/12/17 08:30 ; Start 12/11/17 at 13:00 Levetiracetam (Keppra) 500 mg BID PO Last administered on 12/12/17 08:30; Start 12/11/17 at 11:00 Levothyroxine Sodium (Synthroid) 200 mcg DAILY07 PO Last administered on 08:28; Start 12/11/17 at 11:00 Pantoprazole Sodium (Protonix) 40 mg DAILYAC PO Last administered on 12/12/17 08:29; Start 12/11/17 at 11:00 Potassium Chloride (Klor-Con) 20 meq DAILYWBKFT PO Last administered on 08:29; Start 12/11/17 at 11:00 Sennosides (Senna) 8.6 mg QHS PO Last administered on 12/11/17at 20:49; Start at 21:00 Losartan Potassium (Cozaar) 100 mg DAILY PO Last administered on 12/12/17at 08: 29; Start 12/11/17 at 11:00 Info (Non-Icu Electrolyte Protocol) 1 ea CONT PRN PRN MC PER PROTOCOL; Start at 10:45 Heparin Sodium (Porcine) (Heparin Sq) 5,000 unit Q8HRS SQ Last administered on 12/12/17at 06:22; Start 12/11/17 at 14:00 Active Scripts Active Reported Amitiza (Lubiprostone) 24 Mcg Capsule 1 Cap PO BID Potassium Chloride 10 Meq Tablet.er 20 Meq PO DAILY Furosemide 80 Mg Tablet 1 Tab PO DAILY Senna Lax (Sennosides) 8.6 Mg Tablet 8.6 Mg PO HS Levetiracetam 500 Mg Tab.er.24h 500 Mg PO BID Hydralazine Hcl 10 Mg Tablet 10 Mg PO QID Omeprazole 40 Mg Capsule. 1 Cap PO DAILY Levothyroxine Sodium 200 Mcg Tablet 1 Tab PO DAILY Dexilant (Dexlansoprazole) 60 Mg Cap. 1 Cap PO DAILY Diovan (Valsartan) 160 Mg Tablet 1 Tab PO DAILY Vitals/I & O Vital Sign - Last 24 Hours 12/11/17 12/11/17 12/11/17 12/11/17 10:34 11:00 13:04 15:48 Temp 97.6 Pulse 66 66 66 71 Resp 20 B/P (MAP) 184/95 (124) 184/95 184/95 176/81 (112) Pulse Ox 98 12/11/17 12/11/17 12/11/17 12/11/17 17:11 19:45 19:52 20:50 Temp 97.9 Pulse 71 70 70 Resp 14 B/P (MAP) 176/81 147/67 (93) 147/67 Pulse Ox 94 O2 Delivery Room Air Room Air 12/11/17 12/12/17 12/12/17 12/12/17 23:49 06:15 08:00 08:29 Temp 98.3 98.3 Pulse 68 71 71 Resp 14 16 B/P (MAP) 146/74 (98) 160/80 (106) 160/80 Pulse Ox 93 93 O2 Delivery Room Air Room Air Room Air 12/12/17 08:30 Pulse 71 B/P (MAP) 160/80 Intake and Output 12/11/17 12/11/17 12/12/17 15:00 23:00 07:00 Intake Total 280 ml Balance 280 ml DAILY CALHOUN APRN December 12, 2017 09:11
[2017-12-12] MEDS ORDERED: CLIN300C8 PO (10:02)
[2017-12-12] MEDS ORDERED: FUROSEMIDE 40 MG/4 ML VIAL IVP ONE (10:15)
--- NOTE | 2017-12-12 10:35 | RAD ---
MR#: [id number] Date of Study: 12/11/2017 Ordering Physician: DAILY CALHOUN, Referring Physician: DARLYN BAINS, Tech: Julieta Hull RDMS, RVT, RTR APPROVED REPORT Lower Extremity Venous Study for DVT Patient Location: IN-PATIENT Indications Shortness of breath This is a technically difficult study due to the patient's body habitus. Grossly at the bilateral common femoral veins and saphenofemoral junctions there is no evidence of th rombus. The deep veins appear to be compressible with normal spectral imaging and color Doppler. The mid to distal superficial femoral vein is not well visualized. Bilateral popliteal veins are grossly within normal limits. The below-knee veins again are not well visualized. Critical Notification Critical Value: No <Conclusion> 1. Technically difficult study with grossly no evidence of DVT in the common femoral veins. The leg a nd calf veins were not well visualized due to body habitus but grossly appear to be compressible with out any obvious evidence of thrombus. Signed by : Elier Parker, Electronically Approved : 12/12/2017 10:34:06
[2017-12-12 10:46] LABS: CALCIUM 9.2 mg/dL (8.5-10.1); CREATININE 1.1 mg/dL (0.6-1.0); GFR 58.1; POTASSIUM 3.5 mmol/L (3.5-5.1)
[2017-12-12 10:57] VITALS: BP 135/62
[2017-12-12] MEDS ORDERED: SIMETHICONE 80 MG TAB.CHEW PO PRN (11:30)
[2017-12-12] MEDS ORDERED: CALCIUM CARBONATE 500 MG TAB.CHEW PO PRN (11:30)
[2017-12-12] MEDS ORDERED: hydrALAZINE 25 MG TABLET PO SCH (14:00)
[2017-12-12] MEDS ORDERED: POTASSIUM CHLORIDE 20 MEQ TABLET.ER. PO SCH (14:00)
== END 2017-12-12 13:45 | disposition home or self-care (01) | DRG 101 ==
LOC: ICU 17:56 → 1 SOUTH 20:45
PROVIDERS: ADMIT Family Medicine; ATTEND Family Medicine
DX: G40.509 Epileptic seizures related to external causes, not intractable, without status epilepticus (principal); I13.0 Hypertensive heart and chronic kidney disease with heart failure and stage 1 through stage 4 chronic kidney disease, or unspecified chronic kidney disease; I50.22 Chronic systolic (congestive) heart failure; K12.2 Cellulitis and abscess of mouth; I42.9 Cardiomyopathy, unspecified; E11.22 Type 2 diabetes mellitus with diabetic chronic kidney disease; I49.5 Sick sinus syndrome; E66.01 Morbid (severe) obesity due to excess calories; E03.9 Hypothyroidism, unspecified; R07.89 Other chest pain; N18.9 Chronic kidney disease, unspecified; E78.5 Hyperlipidemia, unspecified; E87.6 Hypokalemia; G47.33 Obstructive sleep apnea (adult) (pediatric); J45.909 Unspecified asthma, uncomplicated; I25.10 Atherosclerotic heart disease of native coronary artery without angina pectoris; M13.0 Polyarthritis, unspecified; K21.9 Gastro-esophageal reflux disease without esophagitis; F32.9 Major depressive disorder, single episode, unspecified; F41.9 Anxiety disorder, unspecified; D63.8 Anemia in other chronic diseases classified elsewhere; Z79.899 Other long term (current) drug therapy; Z88.0 Allergy status to penicillin; Z91.018 Allergy to other foods; Z86.011 Personal history of benign neoplasm of the brain; Z86.711 Personal history of pulmonary embolism; Z86.718 Personal history of other venous thrombosis and embolism; Z86.73 Personal history of transient ischemic attack (TIA), and cerebral infarction without residual deficits; Z95.0 Presence of cardiac pacemaker; I25.2 Old myocardial infarction; Z90.49 Acquired absence of other specified parts of digestive tract
CPT/HCPCS: 36415; 70450; 70486; 71046; 78582; 80048; 80053; 80061; 81001; 82550; 82553; 83735; 83880; 84484; 85025; 85379; 87040; 87086; 87641; 93005; 93306; 93970; 96374; A9540; A9558; J1940

== ENCOUNTER 2018-01-02 23:09 | Observation (INO) | payer MEDICARE ==
[~2018-01-02] VITALS: Ht 162.6 cm; Wt 122.6 kg
[~2018-01-02 23:09] MED LIST: CLIN300C8 PO; DEXL60CA2 PO; FURO80TA3 PO; HYDR-2867 PO; LEVE500T11 PO; LEVO200T5 PO; LUBI24CA7 PO; OMEP40CA5 PO; POTA10TA10 PO; SENN-87 PO; VALS160T3 PO
[2018-01-03 00:21] LABS: BASO % 1 % (0-3); EOS # 0.2 x10^3/uL (0.0-0.7); EOS % 3 % (0-3); HEMATOCRIT 29.1 % (36.0-47.0); HEMOGLOBIN 9.8 g/dL (12.0-15.5); LYMPH # 1.6 x10^3/uL (1.0-4.8); LYMPH % 26 % (24-48); MEAN CORPUSCULAR HEMOGLOBIN 31 pg (25-35); MEAN CORPUSCULAR HGB CONC 34 g/dL (31-37); MEAN CORPUSCULAR VOLUME 93 fL (79-100); MONO # 0.6 x10^3/uL (0.0-1.1); MONO % 10 % (0-9); NEUT # 3.6 x10^3uL (1.8-7.7); NEUT % 60 % (31-73); PLATELET COUNT 222 x10^3/uL (140-400); RED BLOOD COUNT 3.15 x10^6/uL (3.50-5.40); RED CELL DISTRIBUTION WIDTH 14.6 % (11.5-14.5)
[2018-01-03 00:32] LABS: ALBUMIN 3.1 g/dL (3.4-5.0); ALBUMIN/GLOBULIN RATIO 0.7 (1.0-1.7); CREATININE 1.3 mg/dL (0.6-1.0); GFR 47.9; POTASSIUM 3.4 mmol/L (3.5-5.1); TOTAL BILIRUBIN 0.4 mg/dL (0.2-1.0); TOTAL PROTEIN 7.6 g/dL (6.4-8.2)
[2018-01-03] MEDS ORDERED: CONTRAST GIVEN MC PRN (01:30)
[2018-01-03] MEDS ORDERED: IV NORMAL SALINE 1,000ML 1,000 ML IV ONE (02:00)
[2018-01-03] MEDS ORDERED: IOHEXOL 300 MG/ML 75 ML VIAL. IV ONE (02:00)
[2018-01-03] MEDS ORDERED: ONDANSETRON PF 4 MG/2 ML VIAL. IV ONE (02:00)
--- NOTE | 2018-01-03 02:13 | RAD ---
EXAM: CHEST 1 VIEW. HISTORY: Shortness of breath. COMPARISON: December 10, 2017. FINDINGS: A frontal view of the chest is obtained. A left-sided pacemaker has its leads in the right atrium and right ventricle. There are no confluent infiltrates. There is no pneumothorax or pleural effusion. The heart is moderately enlarged. IMPRESSION: 1. Moderate cardiomegaly. Electronically signed by: Jennifer Mckeon MD (01/03/2018 2:09 AM) [facility]
[2018-01-03 02:18] LABS: BACTERIA,URINE 0 /HPF (0-FEW); BILIRUBIN,URINE NEG (NEG); CLARITY,URINE CLEAR; COLOR,URINE YELLOW; GLUCOSE,URINE NEG (NEG); NITRITE,URINE NEG (NEG); RBC,URINE 0 /HPF (0-2); UROBILINOGEN,URINE 0.2 mg/dL (0.2 mg/dL); WBC,URINE OCC /HPF (0-4)
[2018-01-03 02:19] LABS: SQUAMOUS EPITHELIAL CELL,UR FEW /LPF
[2018-01-03] MEDS ORDERED: FUROSEMIDE 40 MG/4 ML VIAL IVP ONE (02:30)
--- NOTE | 2018-01-03 02:41 | ED.ADGEN ---
Past History Past Medical History: Diabetes, High Cholesterol Alcohol Use: None Drug Use: None Adult General Chief Complaint Chief Complaint Shortness of breath, chest pain HPI HPI Patient is a 77-year-old female with history of cardiomyopathy who presents with progressive shortness of breath over the past several hours. Chest shortness breath is associated with substernal chest pain which is nonradiating. It is described as moderate worse with exertion but are present at rest. No nausea vomiting or sweats. No fever chills, nausea vomiting or sweats. Denies history of CAD. No history of DVT or PE. Recent travel from [place] 3 months ago. Patient is currently staying with her daughter. No medications or therapy's prior to ED arrival. Patient is a nonsmoker.[] Review of Systems Review of Systems Review symptoms as per history of present illness.] All other systems were reviewed and found to be within normal limits, except as documented in this note. Current Medications Current Medications Current Medications Medications (Trade) Dose Ordered Sig/Marcos Start Time Stop Time Status Last Admin Dose Admin Fentanyl Citrate (Fentanyl 2ml Vial) 50 mcg 1X ONCE 01/03/18 02:00 01/03/18 02:01 DC 01/03/18 01:37 50 MCG Furosemide (Lasix) 40 mg 1X ONCE 01/03/18 02:30 01/03/18 02:31 DC 01/03/18 02:39 40 MG Info (Do NOT chart on this entry -- for MONITORING) 1 each PRN DAILY PRN 01/03/18 01:30 01/05/18 01:29 Iohexol (Omnipaque 300 Mg/ml) 75 ml 1X ONCE 01/03/18 02:00 01/03/18 02:01 DC 01/03/18 02:03 75 ML Ondansetron HCl (Zofran) 4 mg 1X ONCE 01/03/18 02:00 01/03/18 02:01 DC 01/03/18 01:36 4 MG Sodium Chloride 1,000 ml @ 1,000 mls/hr 1X ONCE 01/03/18 02:00 01/03/18 02:59 DC 01/03/18 01:38 1,000 MLS/HR Allergies Allergies Allergies Coded Allergies Type Severity Reaction Last Updated Verified Penicillins Allergy Intermediate Anaphylaxis 12/10/17 Yes soy Allergy Mild Unknown 12/10/17 Yes Physical Exam Physical Exam Constitutional: Well developed, well nourished, no acute distress, non-toxic appearance. [] HENT: Normocephalic, atraumatic, bilateral external ears normal, oropharynx moist, no oral exudates, nose normal. [] Eyes: PERRLA, EOMI, conjunctiva normal, no discharge. [] Neck: Normal range of motion, no tenderness, supple, no stridor. [] Cardiovascular:Heart rate regular rhythm, no murmur [] Lungs & Thorax: Bilateral breath sounds clear to auscultation [] Abdomen: Bowel sounds normal, soft, no tenderness, no masses, no pulsatile masses. [] Skin: Warm, dry, no erythema, no rash. [] Back: No tenderness, no CVA tenderness. [] Extremities: No tenderness, no cyanosis and kill edema.. [] Neurologic: Alert and oriented X 3, normal motor function, normal sensory function, no focal deficits noted. [] Psychologic: Affect normal, judgement normal, mood normal. [] Current Patient Data Vital Signs Vital Signs Date Time Temp Pulse Resp B/P (MAP) Pulse Ox O2 Delivery O2 Flow Rate FiO2 01/03/18 04:13 64 20 130/70 (90) 97 Room Air 01/02/18 23:27 98.2 Lab Results Laboratory Tests Test 01/03/18 00:02 01/03/18 01:48 White Blood Count 6.0 x10^3/uL (4.0-11.0) Red Blood Count 3.15 x10^6/uL (3.50-5.40) L Hemoglobin 9.8 g/dL (12.0-15.5) L Hematocrit 29.1 % (36.0-47.0) L Mean Corpuscular Volume 93 fL (79-100) Mean Corpuscular Hemoglobin 31 pg (25-35) Mean Corpuscular Hemoglobin Concent 34 g/dL (31-37) Red Cell Distribution Width 14.6 % (11.5-14.5) H Platelet Count 222 x10^3/uL (140-400) Neutrophils (%) (Auto) 60 % (31-73) Lymphocytes (%) (Auto) 26 % (24-48) Monocytes (%) (Auto) 10 % (0-9) H Eosinophils (%) (Auto) 3 % (0-3) Basophils (%) (Auto) 1 % (0-3) Neutrophils # (Auto) 3.6 x10^3uL (1.8-7.7) Lymphocytes # (Auto) 1.6 x10^3/uL (1.0-4.8) Monocytes # (Auto) 0.6 x10^3/uL (0.0-1.1) Eosinophils # (Auto) 0.2 x10^3/uL (0.0-0.7) Basophils # (Auto) 0.0 x10^3/uL (0.0-0.2) D-Dimer (Emperatriz) 2.24 mg/L (0.00-0.50) H Sodium Level 142 mmol/L (136-145) Potassium Level 3.4 mmol/L (3.5-5.1) L Chloride Level 107 mmol/L (98-107) Carbon Dioxide Level 29 mmol/L (21-32) Anion Gap 6 (6-14) Blood Urea Nitrogen 19 mg/dL (7-20) Creatinine 1.3 mg/dL (0.6-1.0) H Estimated GFR (Cockcroft-Gault) 47.9 BUN/Creatinine Ratio 15 (6-20) Glucose Level 108 mg/dL (70-99) H Calcium Level 9.0 mg/dL (8.5-10.1) Total Bilirubin 0.4 mg/dL (0.2-1.0) Aspartate Amino Transferase (AST) 15 U/L (15-37) Alanine Aminotransferase (ALT) 15 U/L (14-59) Alkaline Phosphatase 108 U/L (46-116) Troponin I Quantitative < 0.017 ng/mL (0-0.055) HM-Gcu-Y-Type Natriuretic Peptide 540 pg/mL (0-449) H Total Protein 7.6 g/dL (6.4-8.2) Albumin 3.1 g/dL (3.4-5.0) L Albumin/Globulin Ratio 0.7 (1.0-1.7) L Urine Collection Type Unknown Urine Color Yellow Urine Clarity Clear Urine pH 5.5 Urine Specific [place] 1.015 Urine Protein Neg (NEG-TRACE) Urine Glucose (UA) Neg mg/dL (NEG) Urine Ketones (Stick) Neg mg/dL (NEG) Urine Blood Neg (NEG) Urine Nitrite Neg (NEG) Urine Bilirubin Neg (NEG) Urine Urobilinogen Dipstick 0.2 mg/dL (0.2 mg/dL) Urine Leukocyte Esterase Trace (NEG) Urine RBC 0 /HPF (0-2) Urine WBC Occ /HPF (0-4) Urine Squamous Epithelial Cells Few /LPF Urine Bacteria 0 /HPF (0-FEW) EKG EKG [EKG: Sinus rhythm, rate 70, no acute ST-T wave changes, nonspecific ST-T wave changes. QTC 4:30. Interpreted by this physician.] Radiology/Procedures Radiology/Procedures []CT angios chest: No pulmonary emboli and, pulmonary artery cheek hypertension , moderate cardiomegaly biliary dilatation and pancreatic duct dilatation without obstructing lesion, 3 cm benign adrenal adenoma, moderate hiatal hernia , distal esophageal wall thickening suggest esophagitis per radiology report Course & Med Decision Making Course & Med Decision Making Pertinent Labs and Imaging studies reviewed. (See chart for details) [aTypical chest pain, shortness of breath. No findings of DVT, troponin negative. Mild CHF, Lasix, fentanyl and Zofran given with clinical improvement. Will admit to the hospital service for further evaluation and treatment] Final Impression Final Impression [#1 chest pain #2 CHF exacerbation ] Dragon Disclaimer Dragon Disclaimer This electronic medical record was generated, in whole or in part, using a voice recognition dictation system. AISHWARYA IVORY DO Jan 03, 2018 02:41
--- NOTE | 2018-01-03 03:40 | RAD ---
EXAM: CT ANGIOGRAPHY OF THE CHEST WITH AND WITHOUT INTRAVENOUS CONTRAST. HISTORY: Chest pain, shortness of breath, elevated d-dimer. TECHNIQUE: Computed tomographic angiography of the chest was performed before and after the intravenous administration of 60 mL Omnipaque 300. 3-D maximum intensity projections were also performed. COMPARISON: None. FINDINGS: Images of the upper abdomen reveal changes of cholecystectomy. The common duct measures 9 mm. There is no mild intrahepatic biliary dilatation. The pancreatic duct is also dilated distally at 6 mm. There are no clear pancreatic parenchymal lesions by this technique. A right adrenal nodule measures less than fluid attenuation and 3.1 x 2.1 cm. This is consistent with a benign adenoma or a myelolipoma. There is a moderate hiatal hernia. Wall thickening of the distal esophagus suggests esophagitis. Bone windows reveal no suspicious lesions. No pulmonary emboli are identified. The main pulmonary artery measures 3.3 cm. There is no aortic dissection or aneurysm. There are no pathologically enlarged mediastinal or axillary lymph nodes. There is no pleural or pericardial effusion. The heart is moderately enlarged. A left-sided pacemaker has leads in the right atrium and right ventricle. Coronary atherosclerotic calcifications are noted. Mosaic attenuation in the left upper lobe in both bases is consistent with mild air trapping in the setting of small airways disease. There are no acute infiltrates. IMPRESSION: 1. No pulmonary embolism. 2. Enlargement of the main pulmonary artery suggests pulmonary arterial hypertension. 3. Moderate cardiomegaly. 4. Correlate for small airways disease. 5. Mild extrahepatic biliary dilatation status post cholecystectomy. The pancreatic duct is also dilated without a clear distal obstructing lesion. MRCP could further evaluate if there is persistent concern. 6. Moderate hiatal hernia. Distal esophageal wall thickening suggests esophagitis. 7. 3 cm benign right adrenal adenoma or myelolipoma. *One or more of the following individualized dose reduction techniques were utilized for this examination: 1. Automated exposure control. 2. Adjustment of the mA and/or kV according to patient size. 3. Use of iterative reconstruction technique. Electronically signed by: Jennifer Mckeon MD (01/03/2018 3:36 AM) [facility]
--- NOTE | 2018-01-03 03:41 | EKG ---
[address] [address] Test Date: 2018-01-02 Test Time: 23:10:36 Pat Name: VALDO BENÍTEZ Department: Room: Gender: F Gastroenterology Physician: CARRI : 1940 Requested By: AISHWARYA IVORY Order Number: [id number] Reading MD: Elier Parker MD Measurements Intervals Central Rate: 70 P: 30 [place]: 170 QRS: -15 QRSD: 78 T: 48 QT: 396 QTc: 430 Interpretive Statements PROBABLE PACED RHYTHM VERSUS SR NON-SPECIFIC ST/T CHANGES Electronically Signed On 01-06-2018 10:18:02 CDT by Elier Parker MD
[2018-01-03] MEDS ORDERED: ONDANSETRON PF 4 MG/2 ML VIAL. IV PRN (04:30)
[2018-01-03 05:53] VITALS: BP 151/83
[2018-01-03] MEDS ORDERED: CIPR500T94 PO (06:20)
--- NOTE | 2018-01-03 06:45 | NUR ---
Admission Note: Pt admitted to [facility] through the ER. Pt woke up SOB and having CP and has increased swelling in her BLE's. Pt is alert and oriented, pleasant and cooperative. Denies pain at time of admission. Pt talks in complete sentences with resps even and unlabored at time of admission. LSCTA but diminished throughout. Pt oriented to hospital policy and procedures. Instructed on use of bed and call light. Questions answered for pt and warm blakets provided.
[2018-01-03] MEDS: LACTOBACILLUS RHAMNOSUS GG 1 CAPSULE. PO SCH ×2 (08:07→21:44)
[2018-01-03] MEDS: hydrALAZINE 10 MG TABLET PO SCH ×4 (08:08→21:44)
[2018-01-03] MEDS: LOSARTAN 50 MG TABLET. PO SCH (08:08)
[2018-01-03] MEDS: LEVOTHYROXINE 100 MCG TABLET PO SCH (08:08)
[2018-01-03] MEDS: PANTOPRAZOLE 40 MG TABLET. PO SCH (08:08)
[2018-01-03] MEDS: CIPROFLOXACIN HCL 500 MG TABLET PO SCH ×2 (08:09→21:44)
[2018-01-03] MEDS: levETIRAcetam 500 MG TABLET PO SCH ×2 (08:09→21:44)
[2018-01-03] MEDS: POTASSIUM CHLORIDE 20 MEQ TABLET.ER. PO SCH ×3 (08:09→21:45)
[2018-01-03] MEDS: FUROSEMIDE 40 MG/4 ML VIAL IVP SCH ×2 (08:09→14:53)
[2018-01-03] MEDS: LUBIPROSTONE 24 MCG CAPSULE PO SCH ×2 (08:14→21:45)
[2018-01-03] MEDS ORDERED: FUROSEMIDE PO SCH (09:00)
--- NOTE | 2018-01-03 09:21 | PDOC2 ---
UNIQUEDAILY Medina KILLIAN 01/03/18 0921: CONSULT Date of Admission DATE: 01/03/18 TIME: 09:12 Reason for Consult: cp Problem List Problems Medical Problems: (1) CHF exacerbation Status: Acute History of Present Illness Ms Cote is a 77 year old female who recently traveled from [place] to visit her daughter. She was seen last month in the hospital with atypical chest pain and decompensation of diastolic heart failure. She presented back this time with complaints of recurrent right sided chest pain with radiation to her shoulder and pain in her neck and right cheek. Pain is not exertional and is exacerbated by movement. She reports ongoing swelling in her legs but no increase in dyspnea since her last admission. Echocardiogram last month revealed normal LV function and wall motion and moderate PHTN. She did undergo an MPI in September of this year which revealed normal perfusion. She is currently resting comfortably with complaints of being cold. She denies any pain at this time, she currently denies dyspnea. She denies palpitations, lightheadedness or syncope. She did recently undergo a pacemaker interrogation which revealed normal function and no significant arrhythmias. She continues to deny orthopnea or PND and sleeps on 2 pillows regularly for comfort. She is visiting for [place] and medical records requested last month are reviewed. Past Medical History Past Medical History brain tumor, prior history of DVT/PE Cardiovascular: CAD, CHF, diastolic, HTN, syncope, hyperlipidemia, Other ( cardiomyopathy with diastolic dysfunction, SSS s/p PM), recent normal MPI Pulmonary: Asthma, Other (SOPHY) CENTRAL NERVOUS SYSTEM: CVA, Seizure GI: Constipation, GERD Heme/Onc: Anemia NOS Musculoskeletal: Osteoarthritis Renal/: Chronic renal insuff Endocrine: Diabetes, Hypothyroidism Echo 11/2017 Left ventricle systolic function is normal. The Ejection Fraction is 55%. There is normal LV segmental wall motion. Trace mitral regurgitation. Mild tricuspid regurgitation. The PA pressure was estimated at 48 mmHg. There is no evidence of significant pericardial effusion. MPI 10/01/17 Normal perfusion, attenuation artifact, normal wall motion Past Surgical History bowel resection with mesh hernia repair, cholecystectomy Family History non contributory Social History non smoker, no significant ETOH, no illicit drugs Current Medications Current Medications Fentanyl Citrate (Fentanyl 2ml Vial) 50 mcg 1X ONCE IV Last administered on at 01:37; Start 01/03/18 at 02:00; Stop 01/03/18 at 02:01; Status DC Ondansetron HCl (Zofran) 4 mg 1X ONCE IV Last administered on 01/03/18at 01:36 ; Start 01/03/18 at 02:00; Stop 01/03/18 at 02:01; Status DC Sodium Chloride 1,000 ml @ 1,000 mls/hr 1X ONCE IV Last administered on at 01:38; Start 01/03/18 at 02:00; Stop 01/03/18 at 02:59; Status DC Iohexol (Omnipaque 300 Mg/ml) 75 ml 1X ONCE IV Last administered on 01/03/18at 02:03; Start 01/03/18 at 02:00; Stop 01/03/18 at 02:01; Status DC Info (Do NOT chart on this entry -- for MONITORING) 1 each PRN DAILY PRN MC SEE COMMENTS; Start 01/03/18 at 01:30; Stop 01/05/18 at 01:29 Furosemide (Lasix) 40 mg 1X ONCE IVP Last administered on 01/03/18at 02:39; Start 01/03/18 at 02:30; Stop 01/03/18 at 02:31; Status DC Ondansetron HCl (Zofran) 4 mg PRN Q4HRS PRN IV NAUSEA/VOMITING 1ST CHOICE; Start 01/03/18 at 04:30; Stop 01/04/18 at 04:29 Furosemide (Lasix) 20 mg [id number] IVP Last administered on 01/03/18at 08:09; Start 01/03/18 at 09:00 Lubiprostone (Amitiza) 24 mcg BID PO Last administered on 01/03/18at 08:14; Start 01/03/18 at 09:00 Ciprofloxacin (Cipro) 500 mg BID PO Last administered on 01/03/18at 08:09; Start 01/03/18 at 09:00 Pantoprazole Sodium (Protonix) 40 mg DAILYAC PO Last administered on 01/03/18at 08:08; Start 01/03/18 at 07:30 Non-Formulary Medication (Furosemide ) 1 tab DAILY PO ; Start 01/03/18 at 09:00 ; Stop 01/03/18 at 09:00; Status DC Hydralazine HCl (Apresoline) 20 mg QID PO Last administered on 01/03/18at 08:08 ; Start 01/03/18 at 09:00 Levetiracetam (Keppra) 500 mg BID PO Last administered on 01/03/18at 08:09; Start 01/03/18 at 09:00 Levothyroxine Sodium (Synthroid) 200 mcg DAILY07 PO Last administered on at 08:08; Start 01/03/18 at 07:00 Potassium Chloride (Klor-Con) 20 meq TID PO Last administered on 01/03/18at 08: 09; Start 01/03/18 at 09:00 Sennosides (Senna) 8.6 mg QHS PO ; Start 01/03/18 at 21:00 Losartan Potassium (Cozaar) 100 mg DAILY PO Last administered on 01/03/18at 08: 08; Start 01/03/18 at 09:00 Lactobacillus Rhamnosus (Culturelle) 1 cap BID PO Last administered on at 08:07; Start 01/03/18 at 09:00 Active Scripts Active Reported Cipro (Ciprofloxacin Hcl) 500 Mg Tablet 1 Tab PO BID Amitiza (Lubiprostone) 24 Mcg Capsule 1 Cap PO BID LAST DOSE GIVEN: DATE: TODAY TIME: AM NEXT DOSE DUE: DATE: TODAY TIME: PM Potassium Chloride 10 Meq Tablet.er 20 Meq PO TID LAST DOSE GIVEN: DATE:TODAY TIME: AM NEXT DOSE DUE: DATE: TODAY TIME:AFTERNOON Furosemide 80 Mg Tablet 1 Tab PO DAILY LAST DOSE GIVEN: DATE: TODAY TIME: AM NEXT DOSE DUE: DATE: TOMORROW TIME: AM Senna Lax (Sennosides) 8.6 Mg Tablet 8.6 Mg PO HS LAST DOSE GIVEN: DATE: YESTERDAY TIME: AT BEDTIME NEXT DOSE DUE: DATE: TODAY TIME: AT BEDTIME Levetiracetam 500 Mg Tab.er.24h 500 Mg PO BID LAST DOSE GIVEN: DATE: TODAY TIME: AM NEXT DOSE DUE: DATE: TODAY TIME: PM Hydralazine Hcl 10 Mg Tablet 20 Mg PO QID Omeprazole 40 Mg Capsule.dr 1 Cap PO DAILY LAST DOSE GIVEN: DATE: TODAY TIME: AM NEXT DOSE DUE: DATE: TOMORROW TIME: AM Levothyroxine Sodium 200 Mcg Tablet 1 Tab PO DAILY LAST DOSE GIVEN: DATE: TODAY TIME: AM NEXT DOSE DUE: DATE: TOMORROW TIME: AM Dexilant (Dexlansoprazole) 60 Mg Bart. 1 Cap PO DAILY LAST DOSE GIVEN: DATE: TODAY TIME: AM NEXT DOSE DUE: DATE: TOMORROW TIME: AM Diovan (Valsartan) 160 Mg Tablet 1 Tab PO DAILY LAST DOSE GIVEN: DATE: TODAY TIME: AM NEXT DOSE DUE: DATE: TOMORROW TIME: AM Allergies: Coded Allergies: Penicillins (Verified Allergy, Intermediate, Anaphylaxis, 12/10/17) soy (Verified Allergy, Mild, Unknown, 12/10/17) Review of System as per HPI General: Alert, Oriented X3, Cooperative, No acute distress HEENT: Atraumatic, EOMI Lungs: Other (expriatory, wheezes) Heart: Regular rate, Normal S1, Normal S2, Other (no gallops clicks or rubs) Abdomen: Normal bowel sounds, Soft, No tenderness Extremities: No cyanosis, Other (+1-2 edema) Neuro: Normal speech, Strength at 5/5 X4 ext Psych/Mental Status: Mental status NL, Mood NL VITALS Vital Signs Date Time Temp Pulse Resp B/P (MAP) Pulse Ox O2 Delivery O2 Flow Rate FiO2 01/03/18 08:26 20 99 Room Air 01/03/18 08:08 64 151/83 01/03/18 05:53 98.4 Labs Laboratory Tests Test 01/03/18 00:02 01/03/18 01:48 01/03/18 07:26 White Blood Count 6.0 x10^3/uL (4.0-11.0) Red Blood Count 3.15 x10^6/uL (3.50-5.40) Hemoglobin 9.8 g/dL (12.0-15.5) Hematocrit 29.1 % (36.0-47.0) Mean Corpuscular Volume 93 fL (79-100) Mean Corpuscular Hemoglobin 31 pg (25-35) Mean Corpuscular Hemoglobin Concent 34 g/dL (31-37) Red Cell Distribution Width 14.6 % (11.5-14.5) Platelet Count 222 x10^3/uL (140-400) Neutrophils (%) (Auto) 60 % (31-73) Lymphocytes (%) (Auto) 26 % (24-48) Monocytes (%) (Auto) 10 % (0-9) Eosinophils (%) (Auto) 3 % (0-3) Basophils (%) (Auto) 1 % (0-3) Neutrophils # (Auto) 3.6 x10^3uL (1.8-7.7) Lymphocytes # (Auto) 1.6 x10^3/uL (1.0-4.8) Monocytes # (Auto) 0.6 x10^3/uL (0.0-1.1) Eosinophils # (Auto) 0.2 x10^3/uL (0.0-0.7) Basophils # (Auto) 0.0 x10^3/uL (0.0-0.2) D-Dimer (Emperatriz) 2.24 mg/L (0.00-0.50) Sodium Level 142 mmol/L (136-145) Potassium Level 3.4 mmol/L (3.5-5.1) Chloride Level 107 mmol/L (98-107) Carbon Dioxide Level 29 mmol/L (21-32) Anion Gap 6 (6-14) Blood Urea Nitrogen 19 mg/dL (7-20) Creatinine 1.3 mg/dL (0.6-1.0) Estimated GFR (Cockcroft-Gault) 47.9 BUN/Creatinine Ratio 15 (6-20) Glucose Level 108 mg/dL (70-99) Calcium Level 9.0 mg/dL (8.5-10.1) Total Bilirubin 0.4 mg/dL (0.2-1.0) Aspartate Amino Transf (AST/SGOT) 15 U/L (15-37) Alanine Aminotransferase (ALT/SGPT) 15 U/L (14-59) Alkaline Phosphatase 108 U/L (46-116) Troponin I Quantitative < 0.017 ng/mL (0-0.055) < 0.017 ng/mL (0-0.055) EB-Zar-C-Type Natriuretic Peptide 540 pg/mL (0-449) Total Protein 7.6 g/dL (6.4-8.2) Albumin 3.1 g/dL (3.4-5.0) Albumin/Globulin Ratio 0.7 (1.0-1.7) Urine Collection Type Unknown Urine Color Yellow Urine Clarity Clear Urine pH 5.5 Urine Specific [place] 1.015 Urine Protein Neg (NEG-TRACE) Urine Glucose (UA) Neg mg/dL (NEG) Urine Ketones (Stick) Neg mg/dL (NEG) Urine Blood Neg (NEG) Urine Nitrite Neg (NEG) Urine Bilirubin Neg (NEG) Urine Urobilinogen Dipstick 0.2 mg/dL (0.2 mg/dL) Urine Leukocyte Esterase Trace (NEG) Urine RBC 0 /HPF (0-2) Urine WBC Occ /HPF (0-4) Urine Squamous Epithelial Cells Few /LPF Urine Bacteria 0 /HPF (0-FEW) Images CXR - IMPRESSION: 1. Moderate cardiomegaly. CTA - IMPRESSION: 1. No pulmonary embolism. 2. Enlargement of the main pulmonary artery suggests pulmonary arterial hypertension. 3. Moderate cardiomegaly. 4. Correlate for small airways disease. 5. Mild extrahepatic biliary dilatation status post cholecystectomy. The pancreatic duct is also dilated without a clear distal obstructing lesion. MRCP could further evaluate if there is persistent concern. 6. Moderate hiatal hernia. Distal esophageal wall thickening suggests esophagitis. 7. 3 cm benign right adrenal adenoma or myelolipoma. Assessment/Plan 1. Chest pain, atypical - CE negative. D Dimer elevated. negative for PE. similar elevation last month with negative CT and venous duplex. 2. CAD - CE negative, no acute EKG changes. MPI normal in September of this year. 3. chronic diastolic heart failure - no HF by CXR. Resume home meds, monitor I/ Os and daily weights. 4. Moderate PHTN - PAS 48mmHg by echo last month 5. SSS s/p PPM - Biotronik, device checked in office in the last 2-3 weeks, normal function. 6. hypertension - uncontrolled but improved from last admission, adjust medications as indicated. 7. hyperlipidemia - continue statin 8. diabetes - per PCP SHIV MEDRANO MD 01/03/18 1454: CONSULT Assessment/Plan Patient seen and examined. Agree with COMB TENDER's assessment and plan. Chest pain with atypical features Myocardial infarction has been ruled out Recent 2-D echo showed normal LV systolic function and Lexiscan nuclear stress test did not show any significant ischemia CAD status clinically stable overall Chronic diastolic heart failure clinically well compensated Recent pacemaker interrogation normal No further cardiac workup is indicated at this time Thank you for your consultation DAILY CALHOUN APRN Jan 03, 2018 09:21 SHIV MEDRANO MD Jan 03, 2018 14:54
[2018-01-03 11:00] VITALS: BP 134/76
[2018-01-03] MEDS: IPRATRPIUM/ALBUTEROL 0.5/2.5MG 3 ML NEBU. NEB SCH ×3 (11:35→20:34)
[2018-01-03] MEDS: FAMOTIDINE 20 MG TABLET PO SCH ×2 (12:18→21:44)
[2018-01-03] MEDS: HEPARIN PF for SUB-Q USE 5,000 UNIT/0.5 ML VIAL. SQ SCH ×2 (14:52→21:48)
[2018-01-03 17:29] VITALS: BP 111/74
[2018-01-03] MEDS ORDERED: guaiFENesin DM 200MG/20MG 10 ML SYRUP PO PRN (18:15)
[2018-01-03 21:23] VITALS: BP 133/65
[2018-01-03] MEDS: ACETAMINOPHEN 500 MG TABLET PO PRN (21:44)
[2018-01-03] MEDS: SENNOSIDES 8.6 MG TABLET PO SCH (21:44)
[2018-01-04] MEDS: IPRATRPIUM/ALBUTEROL 0.5/2.5MG 3 ML NEBU. NEB SCH ×4 (05:13→20:12)
[2018-01-04 06:12] VITALS: BP 145/61
[2018-01-04] MEDS: LEVOTHYROXINE 100 MCG TABLET PO SCH (06:16)
[2018-01-04] MEDS: HEPARIN PF for SUB-Q USE 5,000 UNIT/0.5 ML VIAL. SQ SCH ×3 (06:20→21:55)
[2018-01-04] MEDS: CIPROFLOXACIN HCL 500 MG TABLET PO SCH ×2 (09:12→21:52)
[2018-01-04] MEDS: LOSARTAN 50 MG TABLET. PO SCH (09:12)
[2018-01-04] MEDS: LACTOBACILLUS RHAMNOSUS GG 1 CAPSULE. PO SCH ×2 (09:12→21:52)
[2018-01-04] MEDS: LUBIPROSTONE 24 MCG CAPSULE PO SCH ×2 (09:13→21:00)
[2018-01-04] MEDS: hydrALAZINE 10 MG TABLET PO SCH ×3 (09:13→16:53)
[2018-01-04] MEDS: levETIRAcetam 500 MG TABLET PO SCH ×2 (09:13→21:51)
[2018-01-04] MEDS: FAMOTIDINE 20 MG TABLET PO SCH ×2 (09:13→21:52)
[2018-01-04] MEDS: PANTOPRAZOLE 40 MG TABLET. PO SCH (09:13)
[2018-01-04] MEDS: POTASSIUM CHLORIDE 20 MEQ TABLET.ER. PO SCH ×3 (09:13→21:52)
[2018-01-04] MEDS: FUROSEMIDE 40 MG/4 ML VIAL IVP SCH ×2 (09:14→16:53)
[2018-01-04 10:52] VITALS: BP 159/78
[2018-01-04] MEDS: ACETAMINOPHEN 500 MG TABLET PO PRN (11:44)
[2018-01-04] MEDS ORDERED: LOPERAMIDE 2 MG CAPSULE PO PRN (12:15)
[2018-01-04 15:08] VITALS: BP 134/63
[2018-01-04 19:00] VITALS: BP 96/60
[2018-01-04] MEDS: SENNOSIDES 8.6 MG TABLET PO SCH (21:52)
[2018-01-04 23:00] VITALS: BP 142/77
--- NOTE | 2018-01-05 00:04 | PN ---
DATE: 01/03/2018 SUBJECTIVE: The patient is feeling much better today, although she was having some lower abdominal discomfort with diarrhea, placed on Imodium and apparently that has given her some relief. OBJECTIVE: VITAL SIGNS: Blood pressure 96/60. The patient's respiratory rate 12, pulse 72, afebrile. GENERAL: The patient is alert and oriented. LUNGS: Diminished throughout, but clear. HEART: Regular sinus rhythm, S1 and S2. ABDOMEN: Soft, diffuse tenderness in the lower abdominal area. We will continue to monitor the patient accordingly, make further evaluation on her as indicated otherwise. EXTREMITIES: No clubbing, cyanosis. Trace edema. The patient continued to be monitored carefully and make further evaluation on her as indicated. Otherwise, the patient had an elevated D-dimer. Her CTA was negative for any signs of pulmonary emboli, may be pulmonary hypertension, noted that the patient is resting fairly comfortably. IMPRESSION: Therefore, chest pain, negative for cardiac problems, chronic diastolic heart failure, coronary artery disease, sick sinus syndrome, hypotension, hyperlipidemia, and hypokalemia. Continue and make adjustments on her medications as well as continue to monitor diarrhea. Make further evaluation on her as indicated. DARLYN BAINS MD DR: ALISTAIR/hermelindo JOB#: [id number] / [id number]
[2018-01-05] MEDS: hydrALAZINE 10 MG TABLET PO SCH ×5 (00:31→21:06)
[2018-01-05] MEDS: traMADol 50 MG TABLET PO PRN ×2 (00:31→13:04)
[2018-01-05] MEDS: IPRATRPIUM/ALBUTEROL 0.5/2.5MG 3 ML NEBU. NEB SCH ×4 (04:55→20:25)
[2018-01-05] MEDS: LEVOTHYROXINE 100 MCG TABLET PO SCH (05:03)
[2018-01-05] MEDS: HEPARIN PF for SUB-Q USE 5,000 UNIT/0.5 ML VIAL. SQ SCH ×3 (05:09→21:05)
[2018-01-05 05:22] VITALS: BP 144/78
[2018-01-05] MEDS: LUBIPROSTONE 24 MCG CAPSULE PO SCH ×2 (09:00→21:07)
[2018-01-05] MEDS: LACTOBACILLUS RHAMNOSUS GG 1 CAPSULE. PO SCH ×2 (09:12→21:06)
[2018-01-05] MEDS: LOSARTAN 50 MG TABLET. PO SCH (09:14)
[2018-01-05] MEDS: POTASSIUM CHLORIDE 20 MEQ TABLET.ER. PO SCH ×3 (09:14→21:07)
[2018-01-05] MEDS: CIPROFLOXACIN HCL 500 MG TABLET PO SCH ×2 (09:15→21:06)
[2018-01-05] MEDS: FAMOTIDINE 20 MG TABLET PO SCH ×2 (09:15→21:06)
[2018-01-05] MEDS: PANTOPRAZOLE 40 MG TABLET. PO SCH (09:15)
[2018-01-05] MEDS: levETIRAcetam 500 MG TABLET PO SCH ×2 (09:15→21:07)
[2018-01-05] MEDS: FUROSEMIDE 40 MG/4 ML VIAL IVP SCH ×2 (09:16→14:32)
[2018-01-05 10:19] VITALS: BP 144/60
[2018-01-05 10:56] LABS: BASO % 1 % (0-3); EOS # 0.2 x10^3/uL (0.0-0.7); EOS % 4 % (0-3); HEMATOCRIT 32.1 % (36.0-47.0); HEMOGLOBIN 10.5 g/dL (12.0-15.5); LYMPH # 1.3 x10^3/uL (1.0-4.8); LYMPH % 26 % (24-48); MEAN CORPUSCULAR HEMOGLOBIN 30 pg (25-35); MEAN CORPUSCULAR HGB CONC 33 g/dL (31-37); MEAN CORPUSCULAR VOLUME 93 fL (79-100); MONO # 0.5 x10^3/uL (0.0-1.1); MONO % 9 % (0-9); NEUT % 60 % (31-73); PLATELET COUNT 230 x10^3/uL (140-400); RED BLOOD COUNT 3.46 x10^6/uL (3.50-5.40); RED CELL DISTRIBUTION WIDTH 14.9 % (11.5-14.5)
[2018-01-05 11:04] LABS: CALCIUM 9.5 mg/dL (8.5-10.1); CREATININE 1.4 mg/dL (0.6-1.0); POTASSIUM 3.9 mmol/L (3.5-5.1)
--- NOTE | 2018-01-05 12:47 | RAD ---
2 view chest 01/05/2018 Clinical indication: Shortness of breath. COMPARISON: Single view chest 01/02/2018. FINDINGS: Dual lead left chest wall cardiac conduction device in similar position. Stable cardiomegaly without pulmonary venous congestion. No pleural effusion, pneumothorax or focal consolidation. IMPRESSION: Cardiomegaly without roman pulmonary edema or consolidating pneumonia. Electronically signed by: Tee Don MD (01/05/2018 12:43 PM) [facility]
[2018-01-05 15:00] VITALS: BP 117/75
--- NOTE | 2018-01-05 16:14 | PN ---
DATE: 01/05/2018 SUBJECTIVE: The patient is not feeling very well today, although her abdominal pain is much better and her diarrhea stopped. Blood pressure 140/78, respiratory rate 16, pulse 67, afebrile. The patient has been having palpitations, apparently some runs of V-tach (NC), notified the architectural technologist that seen her about the situation. She also was somewhat short of breath. Chest x-ray was basically unremarkable. Labs taken from today did not demonstrate anything in particular. Her BUN and creatinine are stable as was her CPK and LDH. OBJECTIVE: GENERAL: In any case, the patient is alert and oriented, but feeling fairly weak. LUNGS: Diminished throughout, but clear. CARDIOVASCULAR: Regular sinus rhythm with occasional dropped beat. Cardiology reviewed the patient, make further evaluation on her. She is still receiving breathing treatments and make further evaluation on her as indicated. IMPRESSION: Chest pain, shortness of breath, ventricular arrhythmias, sick sinus syndrome, hypertension, hyperlipidemia, hypokalemia. Continue to monitor the patient accordingly. We will get Cardiology's input on that situation. DARLYN BAINS MD DR: ALISTAIR/hermelindo JOB#: [id number] / [id number]
--- NOTE | 2018-01-05 16:21 | EKG ---
[address] [address] Test Date: 2018-01-05 Test Time: 16:16:46 Pat Name: VALDO BENÍTEZ Department: Room: 107 A Gender: F Biomass Facilitator: : 1940 Requested By: DARLYN BAINS Order Number: [id number] Reading MD: Elier Parker MD Measurements Intervals [place] Rate: 67 P: 12 MO: 190 QRS: 5 QRSD: 78 T: 46 QT: 422 QTc: 449 Interpretive Statements SINUS RHYTHM Electronically Signed On 01-06-2018 11:58:07 CDT by Elier Parker MD
[2018-01-05 20:06] VITALS: BP 123/57
[2018-01-05] MEDS: SENNOSIDES 8.6 MG TABLET PO SCH (21:00)
[2018-01-05 23:15] VITALS: BP 140/68
[2018-01-06] MEDS: traMADol 50 MG TABLET PO PRN (00:37)
[2018-01-06] MEDS ORDERED: SIMETHICONE 80 MG TAB.CHEW PO PRN (00:45)
[2018-01-06] MEDS: IPRATRPIUM/ALBUTEROL 0.5/2.5MG 3 ML NEBU. NEB SCH ×2 (05:10→11:06)
[2018-01-06 06:05] VITALS: BP 127/73
[2018-01-06] MEDS: LEVOTHYROXINE 100 MCG TABLET PO SCH (06:15)
[2018-01-06] MEDS: HEPARIN PF for SUB-Q USE 5,000 UNIT/0.5 ML VIAL. SQ SCH (06:15)
[2018-01-06] MEDS: PANTOPRAZOLE 40 MG TABLET. PO SCH (08:00)
--- NOTE | 2018-01-06 08:33 | RAD ---
Bilateral lower extremity venous ultrasound, 01/03/2018: History: Elevated d-dimer, leg edema Duplex evaluation of the deep veins in the lower extremities was performed including grayscale, color-flow and spectral Doppler analysis. The femoral and popliteal veins demonstrate normal compressibility and normal responses to distal augmentation maneuvers. Color imaging of those vessels shows no evidence of intraluminal clot. The visualized deep veins in both calves are patent. IMPRESSION: There is no sonographic evidence of deep vein thrombosis in either lower extremity.
--- NOTE | 2018-01-06 09:29 | PDOC ---
PROGRESS NOTES Diagnosis Problem Problems Medical Problems: (1) CHF exacerbation Status: Acute Assessment Problems Medical Problems: (1) CHF exacerbation Status: Acute 1. Chest pain, atypical - CE negative. recent normal MPI . 2. chronic diastolic heart failure - well compensated. Continue oral mediations. 4. Moderate PHTN - PAS 48mmHg by echo last month 5. SSS s/p PPM - Biotronik, device checked in office in the last 2-3 weeks, normal function. 6. hypertension - improved 7. hyperlipidemia - continue statin 8. diabetes - per PCP Subjective no chest pain, no dyspnea, c/o feeling weak but wants to get up and start walking around or go home Objective Vital Signs Date Time Temp Pulse Resp B/P (MAP) Pulse Ox O2 Delivery O2 Flow Rate FiO2 01/06/18 06:05 98.2 73 20 127/73 (91) 97 01/06/18 05:10 Room Air Intake and Output 01/06/18 07:00 Intake Total 820 ml Balance 820 ml Intake Oral 820 ml # Voids 5 Abdomen: Normal bowel sounds, Soft, No tenderness Heart: Regular rate, Normal S1, Normal S2 Extremities: No cyanosis, Other (trace edema) General: Alert, Oriented X3, Cooperative Lungs: Other (decreased with occ wheeze) Neuro: Normal speech, Strength at 5/5 X4 ext Psych/Mental Status: Mental status NL, Mood NL Review of Relevant I have reviewed the following items rudy (where applicable) has been applied. Labs Laboratory Tests Test 01/05/18 10:45 White Blood Count 5.0 x10^3/uL (4.0-11.0) Red Blood Count 3.46 x10^6/uL (3.50-5.40) Hemoglobin 10.5 g/dL (12.0-15.5) Hematocrit 32.1 % (36.0-47.0) Mean Corpuscular Volume 93 fL (79-100) Mean Corpuscular Hemoglobin 30 pg (25-35) Mean Corpuscular Hemoglobin Concent 33 g/dL (31-37) Red Cell Distribution Width 14.9 % (11.5-14.5) Platelet Count 230 x10^3/uL (140-400) Neutrophils (%) (Auto) 60 % (31-73) Lymphocytes (%) (Auto) 26 % (24-48) Monocytes (%) (Auto) 9 % (0-9) Eosinophils (%) (Auto) 4 % (0-3) Basophils (%) (Auto) 1 % (0-3) Neutrophils # (Auto) 3.0 x10^3uL (1.8-7.7) Lymphocytes # (Auto) 1.3 x10^3/uL (1.0-4.8) Monocytes # (Auto) 0.5 x10^3/uL (0.0-1.1) Eosinophils # (Auto) 0.2 x10^3/uL (0.0-0.7) Basophils # (Auto) 0.0 x10^3/uL (0.0-0.2) Sodium Level 139 mmol/L (136-145) Potassium Level 3.9 mmol/L (3.5-5.1) Chloride Level 103 mmol/L (98-107) Carbon Dioxide Level 31 mmol/L (21-32) Anion Gap 5 (6-14) Blood Urea Nitrogen 23 mg/dL (7-20) Creatinine 1.4 mg/dL (0.6-1.0) Estimated GFR (Cockcroft-Gault) 44.0 Glucose Level 92 mg/dL (70-99) Calcium Level 9.5 mg/dL (8.5-10.1) Creatine Kinase 84 U/L (26-192) Troponin I Quantitative < 0.017 ng/mL (0-0.055) Microbiology 01/03/18 Urine Culture - Final, Complete 01/03/18 Urine Culture Result 1 (ENMANUEL) - Final, Complete Medications Current Medications Fentanyl Citrate (Fentanyl 2ml Vial) 50 mcg 1X ONCE IV Last administered on at 01:37; Start 01/03/18 at 02:00; Stop 01/03/18 at 02:01; Status DC Ondansetron HCl (Zofran) 4 mg 1X ONCE IV Last administered on 01/03/18at 01:36 ; Start 01/03/18 at 02:00; Stop 01/03/18 at 02:01; Status DC Sodium Chloride 1,000 ml @ 1,000 mls/hr 1X ONCE IV Last administered on at 01:38; Start 01/03/18 at 02:00; Stop 01/03/18 at 02:59; Status DC Iohexol (Omnipaque 300 Mg/ml) 75 ml 1X ONCE IV Last administered on 01/03/18at 02:03; Start 01/03/18 at 02:00; Stop 01/03/18 at 02:01; Status DC Info (Do NOT chart on this entry -- for MONITORING) 1 each PRN DAILY PRN MC SEE COMMENTS; Start 01/03/18 at 01:30; Stop 01/05/18 at 01:29; Status DC Furosemide (Lasix) 40 mg 1X ONCE IVP Last administered on 01/03/18at 02:39; Start 01/03/18 at 02:30; Stop 01/03/18 at 02:31; Status DC Ondansetron HCl (Zofran) 4 mg PRN Q4HRS PRN IV NAUSEA/VOMITING 1ST CHOICE; Start 01/03/18 at 04:30; Stop 01/04/18 at 04:29; Status DC Furosemide (Lasix) 20 mg BID94 IVP Last administered on 01/05/18at 14:32; Start 01/03/18 at 09:00 Lubiprostone (Amitiza) 24 mcg BID PO Last administered on 01/05/18 21:07; Start 01/03/18 at 09:00 Ciprofloxacin (Cipro) 500 mg BID PO Last administered on 01/05/18 21:06; Start 01/03/18 at 09:00 Pantoprazole Sodium (Protonix) 40 mg DAILYAC PO Last administered on 01/06/18at 08:00; Start 01/03/18 at 07:30 Non-Formulary Medication (Furosemide ) 1 tab DAILY PO ; Start 01/03/18 at 09:00 ; Stop 01/03/18 at 09:00; Status DC Hydralazine HCl (Apresoline) 20 mg QID PO Last administered on 01/05/18 21:06 ; Start 01/03/18 at 09:00 Levetiracetam (Keppra) 500 mg BID PO Last administered on 01/05/18at 21:07; Start 01/03/18 at 09:00 Levothyroxine Sodium (Synthroid) 200 mcg DAILY07 PO Last administered on at 06:15; Start 01/03/18 at 07:00 Potassium Chloride (Klor-Con) 20 meq TID PO Last administered on 01/05/18 21: 07; Start 01/03/18 at 09:00 Sennosides (Senna) 8.6 mg QHS PO Last administered on 01/04/18 21:52; Start at 21:00 Losartan Potassium (Cozaar) 100 mg DAILY PO Last administered on 01/05/18 09: 14; Start 01/03/18 at 09:00 Lactobacillus Rhamnosus (Culturelle) 1 cap BID PO Last administered on 21:06; Start 01/03/18 at 09:00 Famotidine (Pepcid) 20 mg BID PO Last administered on 01/05/18 21:06; Start at 09:30 Heparin Sodium (Porcine) (Heparin Sq) 5,000 unit Q8HRS SQ Last administered on 01/06/18 06:15; Start 01/03/18 at 14:00 Albuterol/ Ipratropium (Duoneb) 3 ml RTQID NEB Last administered on 01/06/18 05:10; Start 01/03/18 at 12:00 Tramadol HCl (Ultram) 50 mg PRN Q6HRS PRN PO PAIN Last administered on 00:37; Start 01/03/18 at 18:15 Acetaminophen (Tylenol) 1,000 mg PRN Q6HRS PRN PO PAIN Last administered on 11:44; Start 01/03/18 at 18:15 Guaifenesin (Robitussin Dm) 10 ml PRN Q6HRS PRN PO COUGH; Start 01/03/18 at 18: 15 Loperamide HCl (Imodium) 2 mg PRN QID PRN PO DIARRHEA Last administered on 01/04 13:34; Start 01/04/18 at 12:15 Simethicone (Gas-X) 80 mg PRN AFTMEALHC PRN PO GAS / BLOATING Last administered on 01/06/18 00:53; Start 01/06/18 at 00:45 Active Scripts Active Reported Cipro (Ciprofloxacin Hcl) 500 Mg Tablet 1 Tab PO BID Amitiza (Lubiprostone) 24 Mcg Capsule 1 Cap PO BID LAST DOSE GIVEN: DATE: TODAY TIME: AM NEXT DOSE DUE: DATE: TODAY TIME: PM Potassium Chloride 10 Meq Tablet.er 20 Meq PO TID LAST DOSE GIVEN: DATE:TODAY TIME: AM NEXT DOSE DUE: DATE: TODAY TIME:AFTERNOON Furosemide 80 Mg Tablet 1 Tab PO DAILY LAST DOSE GIVEN: DATE: TIME: AM NEXT DOSE DUE: DATE: TOMORROW TIME: AM Senna Lax (Sennosides) 8.6 Mg Tablet 8.6 Mg PO HS LAST DOSE GIVEN: DATE: YESTERDAY TIME: AT BEDTIME NEXT DOSE DUE: DATE: TODAY TIME: AT BEDTIME Levetiracetam 500 Mg Tab.er.24h 500 Mg PO BID LAST DOSE GIVEN: DATE: TIME: AM NEXT DOSE DUE: DATE: TODAY TIME: PM Hydralazine Hcl 10 Mg Tablet 20 Mg PO QID Omeprazole 40 Mg Capsule. 1 Cap PO DAILY LAST DOSE GIVEN: DATE: TIME: AM NEXT DOSE DUE: DATE: TOMORROW TIME: AM Levothyroxine Sodium 200 Mcg Tablet 1 Tab PO DAILY LAST DOSE GIVEN: DATE: TIME: AM NEXT DOSE DUE: DATE: TOMORROW TIME: AM Dexilant (Dexlansoprazole) 60 Mg Cap. 1 Cap PO DAILY LAST DOSE GIVEN: DATE: TIME: AM NEXT DOSE DUE: DATE: TOMORROW TIME: AM Diovan (Valsartan) 160 Mg Tablet 1 Tab PO DAILY LAST DOSE GIVEN: DATE: TIME: AM NEXT DOSE DUE: DATE: TOMORROW TIME: AM Vitals/I & O Vital Sign - Last 24 Hours 01/05/18 01/05/18 01/05/18 01/05/18 10:19 10:22 10:24 13:04 Temp 97.9 Pulse 66 67 Resp 16 B/P (MAP) 144/60 (88) 144/78 Pulse Ox 96 98 98 O2 Delivery Room Air Room Air Room Air 01/05/18 01/05/18 01/05/18 01/05/18 14:04 14:31 15:00 16:11 Temp 98.2 Pulse 67 73 B/P (MAP) 144/78 117/75 (89) Pulse Ox 98 97 98 O2 Delivery Room Air 01/05/18 01/05/18 01/05/18 01/05/18 17:00 19:56 20:06 20:25 Temp 98.2 Pulse 73 77 B/P (MAP) 117/75 123/57 (79) Pulse Ox 93 96 O2 Delivery Room Air Room Air 01/05/18 01/05/18 01/06/18 01/06/18 21:06 23:15 00:37 01:37 Temp 97.7 Pulse 77 79 Resp 20 B/P (MAP) 123/57 140/68 (92) Pulse Ox 93 O2 Delivery Room Air Room Air 01/06/18 01/06/18 05:10 06:05 Temp 98.2 Pulse 73 Resp 20 B/P (MAP) 127/73 (91) Pulse Ox 97 97 O2 Delivery Room Air Intake and Output 01/05/18 01/05/18 01/06/18 15:00 23:00 07:00 Intake Total 720 ml 100 ml Balance 720 ml 100 ml DAILY CALHOUN APRN Jan 06, 2018 09:29
[2018-01-06] MEDS: METOPROLOL TART IMMED RELEASE 25 MG TABLET PO SCH ×2 (09:30→10:22)
[2018-01-06] MEDS: FUROSEMIDE 40 MG/4 ML VIAL IVP SCH (09:34)
[2018-01-06] MEDS: LUBIPROSTONE 24 MCG CAPSULE PO SCH (09:36)
[2018-01-06] MEDS: hydrALAZINE 10 MG TABLET PO SCH (09:38)
[2018-01-06] MEDS: CIPROFLOXACIN HCL 500 MG TABLET PO SCH (09:39)
[2018-01-06] MEDS: LACTOBACILLUS RHAMNOSUS GG 1 CAPSULE. PO SCH (09:43)
[2018-01-06] MEDS: levETIRAcetam 500 MG TABLET PO SCH (09:43)
[2018-01-06] MEDS: LOSARTAN 50 MG TABLET. PO SCH (09:43)
[2018-01-06] MEDS: POTASSIUM CHLORIDE 20 MEQ TABLET.ER. PO SCH (09:44)
[2018-01-06] MEDS: FAMOTIDINE 20 MG TABLET PO SCH (09:44)
[2018-01-06 10:24] VITALS: BP 154/81
[2018-01-06] MEDS ORDERED: IPRA3AMP29 NEB (10:37)
[2018-01-06] MEDS ORDERED: METO25TA4 PO (10:37)
[2018-01-06] MEDS ORDERED: FAMO20TA5 PO (10:37)
[2018-01-06] MEDS ORDERED: ACET500T55 PO (10:37)
[2018-01-06] MEDS ORDERED: LACT1CAP19 PO (10:37)
[2018-01-06] MEDS ORDERED: HYDR-2869 PO (10:37)
--- NOTE | 2018-01-06 17:09 | NUR ---
NURSING DISCHARGE NOTE: Patient discharged to home via wheelchair and accompanied by family. Verbal and written follow-up and medication instructions were given.
--- NOTE | 2018-01-07 09:36 | HP ---
ADMIT DATE: 01/03/2018 INDICATIONS: A 77-year-old female with history of congestive heart failure, increased shortness of breath over the past several hours prior to admission through the Emergency Room, also associated with chest pain described as getting worse with exertion. The patient was admitted to the hospital for further evaluation of her chest pain. She has previous ejection fraction of 55%. She is extremely cold. She has orthopnea and has 2 pillow orthopnea noted. She has a pacemaker, which is ____ normal. PAST SURGICAL HISTORY: Bowel resection with mesh hernia repair, cholecystectomy. PAST MEDICAL HISTORY: Brain tumor, prior history of DVT, PE, diastolic heart failure, hypertension, syncope, hyperlipidemia, cardiomyopathy with diastolic dysfunction, sick sinus syndrome with pacemaker, asthma, history of stroke, and seizures, GERD, osteoarthritis, chronic renal failure, diabetes, and hypothyroidism. SOCIAL HISTORY: Denies smoking, alcohol or drug use. FAMILY HISTORY: Noncontributory. IMMUNIZATIONS: Up-to-date. ALLERGIES: PENICILLIN AND SOY. MEDICATIONS: Cipro 500 b.i.d., hydralazine, valsartan 160, Levaquin ____ 500 mg extended release 24 hours, potassium chloride, furosemide, Amitiza, Keppra, Senna laxative, Dexilant 60 mg a day, Prilosec 40 mg a day, levothyroxine 200 mcg daily. SOCIAL HISTORY: The patient denies smoking, alcohol or drug use. REVIEW OF SYSTEMS: As noted with increased shortness of breath, generalized. She is very cold, requiring several blankets to maintain warm, some chest discomfort, shortness of breath, or cough. Denies any headaches, visual changes, blurred vision, double vision. Denies any melena, hematochezia, or hematemesis and neurologically intact. PHYSICAL EXAMINATION: VITAL SIGNS: On exam, blood pressure 150/80, respiratory rate 20, pulse 64, afebrile. HEENT: The patient's head was atraumatic, normocephalic. Eyes: PERRLA without jaundice. Mouth and throat were normal. NECK: Supple. LUNGS: Diminished with some poor breath sounds noted in the bases with rhonchi noted. HEART: Regular sinus rhythm, S1, S2, without murmur, rub, thrill, or extra heart sound. ABDOMEN: The patient's abdomen is soft, nontender, no rebounding or guarding. Positive bowel sounds except slightly in the right upper quadrant area, but no masses noted. No hepatosplenomegaly. EXTREMITIES: No clubbing, cyanosis, or edema. NEUROLOGIC: The patient was alert and oriented x 3. The patient was admitted to the hospital for further evaluation and treatment. LABORATORY DATA: Hemoglobin 9.8 and 29. Potassium of 3.4. The patient otherwise continues to be monitored carefully. We will make further evaluation. Cardiology consultation and make further assessment on her as indicated. Rule out myocardial infarction, chest pain. She has had recent Lexiscan, did not show any signs of significant ischemia, chronic diastolic heart failure, recent pacemaker interrogation. No further cardiac workup. Continue to monitor the patient accordingly, make further evaluation on her as indicated. DARLYN BAINS MD DR: ALISTAIR/hermelindo JOB#: [id number] / [id number]
== END 2018-01-06 13:30 | disposition home health service (06) ==
LOC: ER 23:09 → 1 SOUTH 01-03 02:20 → INTOOBSV 01-03 02:20 → 1 SOUTH 01-03 04:50 → UNDOADMIN 01-03 04:50
PROVIDERS: ADMIT Family Medicine; ATTEND Family Medicine
DX: R07.89 Other chest pain (principal); I47.2 Ventricular tachycardia; I42.8 Other cardiomyopathies; I13.0 Hypertensive heart and chronic kidney disease with heart failure and stage 1 through stage 4 chronic kidney disease, or unspecified chronic kidney disease; I50.32 Chronic diastolic (congestive) heart failure; N18.9 Chronic kidney disease, unspecified; M19.90 Unspecified osteoarthritis, unspecified site; E78.5 Hyperlipidemia, unspecified; E03.9 Hypothyroidism, unspecified; I49.5 Sick sinus syndrome; J45.909 Unspecified asthma, uncomplicated; K21.9 Gastro-esophageal reflux disease without esophagitis; E11.22 Type 2 diabetes mellitus with diabetic chronic kidney disease; I95.9 Hypotension, unspecified; Z86.73 Personal history of transient ischemic attack (TIA), and cerebral infarction without residual deficits; G47.33 Obstructive sleep apnea (adult) (pediatric)
CPT/HCPCS: 36415; 71045; 71046; 71275; 80048; 80053; 81001; 82550; 83880; 84484; 85025; 85379; 87086; 93005; 93970; 94640; 96361; 96372; 96374; 96375; 96376; 99285; G0378; J1940; J2405; J3010; J7620; Q9967; G0379; J7030